=== PATIENT | female | born 1935 | race Caucasian/White ===

== ENCOUNTER 2016-11-27 18:43 | Inpatient (IN) | payer MEDICARE, BC ==
[~2016-11-27] VITALS: Ht 162.6 cm; Wt 62.2 kg
[~2016-11-27 18:43] MED LIST: ASPI1TAB69 PO; CLON1 PO; ENOX40P SQ; FERR325T PO; FURO20TA PO; HYDR-3516 PO; ISOS40TA PO; LABE100T2 PO; LACT10SO PO; NORC5TAB PO; PAXI40TA PO; POTA10SO12 PO; VITA100036 PO; VITA10004 PO; WALKER WHEELS/F1 MIS; ZIPR40 PO
[2016-11-27 18:57] VITALS: BP 144/67; PULSE 69; RESP 16; TEMP 98.1; O2SAT 95
--- NOTE | 2016-11-27 19:14 | PD ---
HPI Chief Complaint: Hip Injury Time Seen by Provider: 19:07 Travel History International Travel<30 days: No Contact w/Intl Traveler<30days: No Traveled to known affect area: No History of Present Illness HPI 81-year-old female came to the emergency room with history of fall in care home. Patient has history of dementia and in fact was in the hospital 10 days ago for a fall and right hip fracture. She just went to care home less than a week ago. As time as per capture manager she's been complaining of left hip pain. She was brought in on a board since she was unable to get up from the floor due to the pain of her left hip and lower back. Patient continues to be mostly noncommunicative due to her significant dementia. Patient is slightly hypoxic but otherwise vital signs are within normal limits. She is a DNR [facility] Past Medical History Narrative Medical List of her past medical history as reviewed from the nursing note. Arthritis: No Asthma: No Autoimmune Disease: No Blood Disorders: No Anxiety: Yes Depression: Yes Heart Rhythm Problems: No Cancer: Yes (SKIN) Cardiac Catheterization: No Cardiovascular Problems: Yes High Cholesterol: Yes Chemotherapy: No Chest Pain: Yes Congestive Heart Failure: No COPD: No Cerebrovascular Accident: No Coronary Artery Disease: Yes Dementia: Yes Diabetes: No Diminished Hearing: No Endocrine: No GERD: No Glaucoma: No Genitourinary: No Headaches: No Hepatitis: No Hiatal Hernia: No Hypertension: Yes Immune Disorder: No Kidney Stones: No Musculoskeletal: No Neurologic: Yes Psychiatric: No Reproductive: No Respiratory: No Migraines: No Myocardial Infarction: No Radiation Therapy: No Renal Failure: No Seizures: No Sickle Cell Disease: No Sleep Apnea: No Thyroid Disease: No Ulcer: No Menopausal: Yes : 4 Para: 4 Past Surgical History Abdominal Surgery: Yes (gallbladder) AICD: No Appendectomy: No Arteriovenous Shunt: No Cardiac Surgery: Yes (2stent placement 09/23/2008) Cholecystectomy: Yes Coronary Artery Bypass Graft: No Ear Surgery: No Endocrine Surgery: No Eye Surgery: No Genitourinary Surgery: No Gynecologic Surgery: No Insulin Pump: No Joint Replacement: No Pacemaker: No Thoracic Surgery: No Tonsillectomy: Yes Other Surgery: Yes (arthroscopy ) Social History Alcohol Use: Yes Tobacco Use: No Substance Use: No Allergies-Medications (Allergen,Severity, Reaction): Coded Allergies: Aricept (Verified Allergy, Severe, 11/27/16) unknown Clonidine (Verified Allergy, Severe, 11/27/16) unknown Comments List of her allergies reviewed from the nursing note. Reported Meds & Prescriptions Reported Meds & Active Scripts Active Klonopin (Clonazepam) 1 Mg Tab 1 Mg PO HS Walker with Front Wheels (Device) 1 Mis Mis 1 Ea .ROUTE DIRECTED Hydrocodone-Acetaminophen 5-325 mg Tab 1 Tab PO Q4H PRN Lovenox Inj (Enoxaparin Sodium) 40 Mg/0.4 Ml Syr 40 Mg SQ Q24H Reported [place] (Hydrocodone-Acetaminophen) 5-325 mg Tab 1 Tab PO Q4H PRN Lactulose Liq (Lactulose) 10 Gm/15 Ml Soln 30 Ml PO HS PRN Labetalol (Labetalol HCl) 100 Mg Tab 100 Mg PO TID Ferrous Sulfate 325 Mg Tab 325 Mg PO DAILY Geodon (Ziprasidone) 40 Mg Cap 40 Mg PO BID Vitamin D3 (Cholecalciferol) 1,000 Unit Cap 1,000 Units PO DAILY Vitamin B-12 Cr (Cyanocobalamin) 1,000 Mcg Tab 1,000 Mcg PO DAILY Potassium Chloride Liq (Potassium Chloride) 20 Meq/15 Ml Soln 20 Meq PO DAILY Paxil (Paroxetine HCl) 40 Mg Tab 37.5 Mg PO DAILY take two tabs Isosorbide Dinitrate SA (Isosorbide Dinitrate) 40 Mg Tab 60 Mg PO DAILY Furosemide 20 Mg Tab 20 Mg PO DAILY Aspirin 81 Mg Tabdr 81 Mg PO DAILY Narrative Medication List of her home medications reviewed from the nursing note. Review of Systems Except as stated in HPI: all other systems reviewed are Neg Physical Exam Narrative GENERAL: Awake, dementia, elderly and frail, noncommunicative, moderate distress SKIN: Warm and dry. Skin tear left elbow, significant ecchymosis right lower extremity HEAD: Atraumatic. Normocephalic. EYES: Pupils equal and round. No scleral icterus. No injection or drainage. ENT: No nasal bleeding or discharge. Mucous membranes pink and moist. NECK: Trachea midline. No JVD. CARDIOVASCULAR: Regular rate and rhythm. No murmur appreciated. RESPIRATORY: No accessory muscle use. Clear to auscultation. Breath sounds equal bilaterally. GASTROINTESTINAL: Abdomen soft, non-tender, nondistended. Hepatic and splenic margins not palpable. MUSCULOSKELETAL: No obvious deformities. No clubbing. No cyanosis. No edema. Patient is in the right lateral decubitus in position. Complains of bilateral lower extremity pain when attempting to move them. NEUROLOGICAL: Awake and significant dementia. Unable to determine her motor strength or sensory. Mostly nonverbal PSYCHIATRIC: Due to significant dementia poor insight and judgment Data Data Last Documented VS Vital Signs Date Time Temp Pulse Resp B/P Pulse Ox O2 Delivery O2 Flow Rate FiO2 11/27/16 19:20 78 15 91 Room Air 11/27/16 19:18 146/71 11/27/16 18:57 98.1 Orders Basic Metabolic Panel (Bmp) (11/27/16 19:07) Complete Blood Count With Diff (11/27/16 19:07) Prothrombin Time / Inr (Pt) (11/27/16 19:07) Act Partial Throm Time (Ptt) (11/27/16 19:07) Type And Screen (11/27/16 19:07) Ct Brain W/O Iv Contrast(Rout) (11/27/16 19:07) Ct Cerv Spine W/O Contrast (11/27/16 19:07) Ct Thor Spine W/O Contrast (11/27/16 19:07) Ct Lumb Spine W/O Contrast (11/27/16 19:07) Iv Access Insert/Monitor (11/27/16 19:07) Ecg Monitoring (11/27/16 19:07) Oximetry (11/27/16 19:07) Oxygen Administration (11/27/16 19:07) Sodium Chloride 0.9% Flush (Ns Flush) (11/27/16 19:15) Ct Pelvis W/O Iv Contrast (11/27/16 ) Morphine Inj (Morphine Inj) (11/27/16 19:30) Ondansetron Inj (Zofran Inj) (11/27/16 19:30) Admit Order (Ed Use Only) (11/27/16 19:55) Morphine Inj (Morphine Inj) (11/27/16 21:15) Urinary Catheter Insert/Apply (11/27/16 21:13) Consult Orthopedic (11/27/16 ) Admit To Inpatient (11/27/16 ) Vital Signs (Adult) Q4H (11/27/16 21:30) Activity Bed Rest (11/27/16 21:30) Diet Npo (11/28/16 Breakfast) Sodium Chlor 0.9% 1000 Ml Inj (Ns 1000 M (11/27/16 21:30) Sodium Chloride 0.9% Flush (Ns Flush) (11/27/16 21:30) Sodium Chloride 0.9% Flush (Ns Flush) (11/28/16 09:00) Ondansetron Inj (Zofran Inj) (11/27/16 21:30) Bisacodyl Supp (Dulcolax Supp) (11/27/16 21:30) Comprehensive Metabolic Panel (11/28/16 06:00) Complete Blood Count With Diff (11/28/16 06:00) Acetaminophen (Tylenol) (11/27/16 21:30) Acetamin-Hydrocod 325-5 Mg ([place] 5-325 (11/27/16 21:30) Morphine Inj (Morphine Inj) (11/27/16 21:30) Inpatient Certification (11/27/16 ) Lorazepam Inj (Ativan Inj) (11/27/16 21:30) Restraints Non-Violent RJ.Q3H (11/27/16 21:30) Clonazepam (Klonopin) (11/28/16 21:00) Ferrous Sulfate (Ferrous Sulfate) (11/28/16 09:00) Furosemide (Lasix) (11/28/16 09:00) Labetalol (Trandate) (11/28/16 09:00) Ziprasidone (Geodon) (11/27/16 21:30) Isosorbide Mononitrate (Imdur) (11/28/16 09:00) Paroxetine Sr (Paxil Cr) (11/28/16 09:00) Labs Laboratory Tests Test 11/27/16 19:15 White Blood Count 6.7 TH/MM3 Red Blood Count 3.16 MIL/MM3 Hemoglobin 9.2 GM/DL Hematocrit 27.5 % Mean Corpuscular Volume 87.1 FL Mean Corpuscular Hemoglobin 29.1 PG Mean Corpuscular Hemoglobin 33.3 % Concent Red Cell Distribution Width 15.6 % Platelet Count 275 TH/MM3 Mean Platelet Volume 8.7 FL Neutrophils (%) (Auto) 78.2 % Lymphocytes (%) (Auto) 10.8 % Monocytes (%) (Auto) 8.2 % Eosinophils (%) (Auto) 2.1 % Basophils (%) (Auto) 0.7 % Neutrophils # (Auto) 5.2 TH/MM3 Lymphocytes # (Auto) 0.7 TH/MM3 Monocytes # (Auto) 0.5 TH/MM3 Eosinophils # (Auto) 0.1 TH/MM3 Basophils # (Auto) 0.0 TH/MM3 CBC Comment DIFF FINAL Differential Comment Prothrombin Time 10.9 SEC Prothromb Time International 1.0 RATIO Ratio Activated Partial 26.1 SEC Thromboplast Time Sodium Level 136 MEQ/L Potassium Level 5.1 MEQ/L Chloride Level 101 MEQ/L Carbon Dioxide Level 27.2 MEQ/L Anion Gap 8 MEQ/L Blood Urea Nitrogen 29 MG/DL Creatinine 1.39 MG/DL Estimat Glomerular Filtration 36 ML/MIN Rate Random Glucose 92 MG/DL Calcium Level 8.3 MG/DL Blood Type A POSITIVE Antibody Screen NEGATIVE MDM Medical Decision Making Medical Screen Exam Complete: Yes Emergency Medical Condition: Yes Medical Record Reviewed: Yes Differential Diagnosis Left hip fracture, compression vertebral fracture Narrative Course 8:01 PM awaiting for the blood test results and the CAT scan to be done and resulted. Patient has been medicated for pain. 9:15 PM CAT scan shows left hip fracture which is a nondisplaced intertrochanteric. Awaiting for the hospitalist call back for admission. Patient has been medicated for pain again. I spoke with the family at the bedside and let them know of the diagnosis and the management. Procedures EKG Prior to Arrival: No Diagnosis Primary Impression: Hip fracture, intertrochanteric Qualified Code: S72.145A - Closed nondisplaced intertrochanteric fracture of left femur, initial encounter Additional Impressions: Dementia Qualified Code: F03.90 - Dementia without behavioral disturbance, unspecified dementia type Recurrent falls Admitting Information Admitting Physician Requests: Admit Scripts Rivaroxaban (Xarelto)10 Mg Tab10 Mg PO DAILY #14 TAB Ref 0 Prov:Pedro Teague 11/29/16 Hydrocodone-Acetaminophen ([place])7.5-325 mg Tab1 Tab PO Q4H PRN (PAIN) #60 TAB Ref 0 Prov:Pedro Teague 11/29/16 Emma Allen MD Nov 27, 2016 19:14
[2016-11-27] MEDS ORDERED: SODIUM CHLORIDE 0.9% FLUSH 5 ML FLUSH IVF PRN (19:15)
[2016-11-27 19:18] VITALS: BP 146/71; PULSE 72; RESP 15; O2SAT 91
[2016-11-27] MEDS ORDERED: ONDANSETRON HCL 4 MG/2 ML VIAL IV PUSH ONE (19:30)
[2016-11-27] MEDS ORDERED: MORPHINE SULFATE 4 MG/ML INJ IV PUSH ONE ×2 (19:30→21:15)
[2016-11-27 19:34] LABS: AUTOMATED NEUTROPHIL # 5.2 TH/MM3 (1.8-7.7); BASOPHIL % 0.7 % (0.0-2.0); EOSINOPHIL # 0.1 TH/MM3 (0-0.4); EOSINOPHIL % 2.1 % (0.0-4.0); HEMATOCRIT 27.5 % (35.0-46.0); HEMO FLAGS DIFF FINAL; LYMPH % 10.8 % (9.0-44.0); LYMPHOCYTE # 0.7 TH/MM3 (1.0-4.8); MEAN CELL VOLUME 87.1 FL (80.0-100.0); MEAN CORPUSCULAR HEMOGLOBIN 29.1 PG (27.0-34.0); MEAN CORPUSCULAR HGB CONC 33.3 % (32.0-36.0); MONO % 8.2 % (0.0-8.0); NEUT % 78.2 % (16.0-70.0); PLATELET COUNT 275 TH/MM3 (150-450); RED BLOOD COUNT 3.16 MIL/MM3 (4.00-5.30); RED CELL DISTRIBUTION WIDTH 15.6 % (11.6-17.2); WHITE BLOOD COUNT 6.7 TH/MM3 (4.0-11.0)
[2016-11-27 19:41] LABS: APTT (PATIENT) 26.1 SEC (24.3-30.1); PROTHROMBIN TIME - PATIENT 10.9 SEC (9.8-11.6)
[2016-11-27 19:54] LABS: BICARBONATE 27.2 MEQ/L (21.0-32.0); POTASSIUM 5.1 MEQ/L (3.5-5.1)
--- NOTE | 2016-11-27 20:45 | RADRPT ---
EXAM DATE/TIME: 11/27/2016 20:00 [facility] COMPARISON: CT BRAIN W/O CONTRAST, November 16, 2016, 19:12. INDICATIONS : Trauma; fall. RADIATION DOSE: 44.69 CTDIvol (mGy) MEDICAL HISTORY : Non-responsive. SURGICAL HISTORY : Non-responsive. ENCOUNTER: Initial ACUITY: 1 day PAIN SCALE: Non-responsive LOCATION: cranial TECHNIQUE: Multiple contiguous axial images were obtained of the head. Using automated exposure control and adj ustment of the mA and/or kV according to patient size, radiation dose was kept as low as reasonably a chievable to obtain optimal diagnostic quality images. FINDINGS: Study is motion degraded. CEREBRUM: The ventricles are normal for age. No evidence of midline shift, mass lesion, hemorrhage or acute in farction. No extra-axial fluid collections are seen. There is chronic low-attenuation in the periven tricular white matter and scattered old lacunar infarcts in both basal ganglia. POSTERIOR FOSSA: The cerebellum and brainstem are intact. The 4th ventricle is midline. The cerebellopontine angle i s unremarkable. EXTRACRANIAL: The visualized portion of the orbits is intact. SKULL: The calvaria is intact. No evidence of skull fracture. CONCLUSION: Motion degraded study. No bleed or other acute intracranial abnormality demonstrated. Chronic white m atter changes and old infarcts. Haris Rebolledo MD on November 27, 2016 at 20:43 Board Certified Radiologist. This report was verified electronically.
--- NOTE | 2016-11-27 20:48 | RADRPT ---
EXAM DATE/TIME: 11/27/2016 20:00 [facility] COMPARISON: No previous studies available for comparison. INDICATIONS : Trauma; fall. RADIATION DOSE: 18.11 CTDIvol (mGy) MEDICAL HISTORY : Non-responsive. SURGICAL HISTORY : Non-responsive. ENCOUNTER: Initial ACUITY: 1 day PAIN SCALE: Non-responsive LOCATION: neck TECHNIQUE: Volumetric scanning of the cervical spine was performed. Multiplanar reconstructions in the sagittal, coronal and oblique axial planes were performed. Using automated exposure control and adjustment o f the mA and/or kV according to patient size, radiation dose was kept as low as reasonably achievable to obtain optimal diagnostic quality images. FINDINGS: A few millimeters of degenerative appearing anterolisthesis at C4/C5 and degenerative retrolisthesis at C5/C6 noted. No fracture or acute appearing malalignment. Vertebral bodies have normal height. There is multilevel disc space narrowing with uncovertebral and facet osteoarthritis, moderate at C5/ C6 and C6/C7 and mild at the other levels. Juxtavertebral soft tissues are within normal limits. CONCLUSION: No fracture or acute appearing malalignment demonstrated of the cervical spine. Haris Rebolledo MD on November 27, 2016 at 20:45 Board Certified Radiologist. This report was verified electronically.
--- NOTE | 2016-11-27 21:03 | RADRPT ---
EXAM DATE/TIME: 11/27/2016 20:06 [facility] COMPARISON: HIP RIGHT (AP&LAT 2/3VWS) W AP PELVIS, November 16, 2016, 18:35. HIP RIGHT (AP&LAT 2/3VWS) WO AP PEL VIS, November 17, 2016, 15:37. INDICATIONS : Trauma; fall. ORAL CONTRAST: No oral contrast ingested. RADIATION DOSE: 11.20 CTDIvol (mGy) ; Combined studies MEDICAL HISTORY : Non-responsive. SURGICAL HISTORY : Non-responsive. ENCOUNTER: Initial ACUITY: 1 day PAIN SCALE: Non-responsive LOCATION: pelvis TECHNIQUE: Volumetric scanning of the pelvis was performed. Using automated exposure control and adjustment of the mA and/or kV according to patient size, radiation dose was kept as low as reasonably achievable t o obtain optimal diagnostic quality images. FINDINGS: There is an acute fracture involving the intertrochanteric region of the left hip. This is a new find ing from the prior exam. There is resulting varus angulation at the fracture site. The femoral head r emains in contact with the acetabulum. The prior intertrochanteric fracture on the right shows good a lignment with intramedullary ariana and femoral neck screw. The avulsed lesser trochanter is retracted p roximally. A scoliotic and degenerative spine is seen. No pelvic hematoma observed. There is hematoma seen involving the left posterior hip aerated old trauma the pubic rami on the left. CONCLUSION: 1. No comminuted intertrochanteric fracture on the left. 2. Prior right intertrochanteric hip fracture with orthopedic hardware. 3. 5 cm hematoma involving the posterior left hip. Quintin Galdamez Jr., MD on November 27, 2016 at 20:56 Board Certified Radiologist. This report was verified electronically.
--- NOTE | 2016-11-27 21:09 | RADRPT ---
EXAM DATE/TIME: 11/27/2016 20:06 [facility] COMPARISON: No previous studies available for comparison. INDICATIONS : Trauma; fall. RADIATION DOSE: 11.20 CTDIvol (mGy) ; Combined studies MEDICAL HISTORY : Non-responsive. SURGICAL HISTORY : Non-responsive. ENCOUNTER: Initial ACUITY: 1 day PAIN SCALE: Non-responsive LOCATION: lower back TECHNIQUE: Volumetric scanning of the lumbar spine was performed. Multiplanar reconstructions in the sagittal, coronal and oblique axial planes were performed. Using automated exposure control and adjustment of the mA and/or kV according to patient size, radiation dose was kept as low as reasonably achievable t o obtain optimal diagnostic quality images. FINDINGS: There is mild compression fracture involving the superior endplate of L2. There is quite a bit of ass ociated sclerosis and this appears subacute or older in age. There are no retropulsed fracture fragme nt or fracture-associated foraminal or spinal stenosis. Other lumbar vertebral bodies have normal height. Moderate to severe disc space narrowing with a broad disc osteophyte complex and facet osteoarthritis seen at L5/S1. There is associated moderate, bilateral foraminal stenosis at this level. Similar but milder findings are seen at L3/L4 and L4/L5. The sacrum is partly included on the study. There is patchy sclerosis of both sacroiliac and mild cor tical regularity on longer anterior margins. CONCLUSION: 1. No acute fracture or subluxation of the lumbar spine. 2. There is a subacute or older mild compression fracture of L2. No associated foraminal or spinal st enosis. 3. Mid and lower lumbar predominant degenerative changes as above. 4. Nonacute and substantially healed i fractures of the sacrum. I don't see an acute fracture of the visualized sacrum. Haris Rebolledo MD on November 27, 2016 at 21:02 Board Certified Radiologist. This report was verified electronically.
[2016-11-27] MEDS ORDERED: MORPHINE SULFATE 4 MG/ML INJ IV PRN (21:30)
[2016-11-27] MEDS ORDERED: SODIUM CHLORIDE 0.9% FLUSH 5 ML FLUSH FLUSH PRN (21:30)
[2016-11-27] MEDS ORDERED: ACETAMINOPHEN/HYDROcodone 325 MG/5 MG TAB PO PRN (21:30)
[2016-11-27] MEDS ORDERED: BISACODYL 10 MG SUPP PR PRN (21:30)
[2016-11-27] MEDS ORDERED: ONDANSETRON HCL 4 MG/2 ML VIAL IVP PRN (21:30)
[2016-11-27] MEDS ORDERED: ACETAMINOPHEN 325 MG TAB PO PRN (21:30)
[2016-11-27] MEDS ORDERED: LORazepam 2 MG/ML VIAL IV PUSH PRN (21:30)
--- NOTE | 2016-11-27 21:44 | HHI.HP ---
[facility] Unknown Admission Diagnosis Diagnoses: (1) Hip fracture, intertrochanteric Diagnosis: Principal (2) Recurrent falls Diagnosis: Principal (3) Dementia Diagnosis: Principal Travel History International Travel<30 Days: No Contact w/Intl Traveler <30 Da: No Traveled to Known Affected Are: No History of Present Illness This is an 81-year-old female with a PMH of Dementia, Anxiety, Depression and Recurrent Falls who was transferred to the ER from SNF after another fall. Pt unable to provide much history except for complains of left hip pain. Recent admit 11/16-11/21/16 for same, found to have Right Intertrochanteric Hip Fx /sp ORIF 11/17/16. On arrival, BP 146/71, HR 71, O2 sat 91% on RA, Afebrile. CBC at baseline. Chemistry at baseline. Creatinine 1.39, previously 1.[address] Head, CT C-Spine w/ no acute finding. CT L-Spine w/ subacute L2 compression fracture, no acute findings. CT T-Spine w/ acute compression fracture T11. CT Pelvis w/ acute fracture of left intertrochanteric hip and posterior hip hematoma. Review of Systems Other ROS: Unable to obtain. Past Family Social History Past Medical History PMH: Dementia, Anxiety, Depression and Recurrent Falls Past Surgical History PAST SURGICAL HISTORY: Cholecystectomy, Cardiac Stent, Tonsillectomy, Right Hip ORIF Allergies: Coded Allergies: Aricept (Verified Allergy, Severe, 11/27/16) unknown Clonidine (Verified Allergy, Severe, 11/27/16) unknown Family History PAST FAMILY HISTORY: Reviewed. No h/o DM or CAD Social History PAST SOCIAL HISTORY: Occasional alcohol. Negative for tobacco or drugs. Physical Exam Vital Signs Vital Signs Date Time Temp Pulse Resp B/P Pulse Ox O2 Delivery O2 Flow Rate FiO2 11/27/16 19:20 78 15 91 Room Air 11/27/16 19:18 72 15 146/71 91 Room Air 11/27/16 19:02 70 18 95 Room Air 11/27/16 18:57 98.1 69 16 144/67 95 Physical Exam PE: GENERAL: Elderly female in no acute distress. Significant dementia. HEENT: PERRLA, EOMI. No scleral icterus or conjunctival pallor. No lid lag or facial droop. CARDIOVASCULAR: Regular rate and rhythm. No obvious murmurs to auscultation. No chest tenderness to palpation. RESPIRATORY: No obvious rhonchi or wheezing. Clear to auscultation. Breath sounds equal bilaterally. GASTROINTESTINAL: Abdomen soft, non-tender, nondistended. BS normal. MUSCULOSKELETAL: Extremities without clubbing, cyanosis, or edema. No obvious deformities. Decreased ROM of left hip due to injury NEUROLOGICAL: Awake, alert, dementia. No focal neurologic deficits. Moving both upper and lower extremities spontaneously. Laboratory Laboratory Tests Test 11/27/16 19:15 White Blood Count 6.7 Red Blood Count 3.16 Hemoglobin 9.2 Hematocrit 27.5 Mean Corpuscular Volume 87.1 Mean Corpuscular Hemoglobin 29.1 Mean Corpuscular Hemoglobin 33.3 Concent Red Cell Distribution Width 15.6 Platelet Count 275 Mean Platelet Volume 8.7 Neutrophils (%) (Auto) 78.2 Lymphocytes (%) (Auto) 10.8 Monocytes (%) (Auto) 8.2 Eosinophils (%) (Auto) 2.1 Basophils (%) (Auto) 0.7 Neutrophils # (Auto) 5.2 Lymphocytes # (Auto) 0.7 Monocytes # (Auto) 0.5 Eosinophils # (Auto) 0.1 Basophils # (Auto) 0.0 CBC Comment DIFF FINAL Differential Comment Prothrombin Time 10.9 Prothromb Time International 1.0 Ratio Activated Partial 26.1 Thromboplast Time Sodium Level 136 Potassium Level 5.1 Chloride Level 101 Carbon Dioxide Level 27.2 Anion Gap 8 Blood Urea Nitrogen 29 Creatinine 1.39 Estimat Glomerular Filtration 36 Rate Random Glucose 92 Calcium Level 8.3 Blood Type A POSITIVE Antibody Screen NEGATIVE Result Diagram: 11/27/16191411/27/161914 Assessment and Plan Problem List: (1) Recurrent falls ICD Code: R29.6 Status: Acute (2) Hip fracture, intertrochanteric ICD Code: S72.143A Status: Acute (3) Thoracic compression fracture ICD Code: S22.000A Status: Acute (4) Dementia ICD Code: F03.90 Status: Chronic Assessment and Plan A/P: 1. Recurrent Falls: sent to ER from SNF secondary to fall at facility, details unclear. CT Head, CT C-Spine w/ no acute fracture. CT L-Spine w/ subacute L1 fx, CT T-Spine w/ acute T-11 compression fracture, images reviewed. 2. Left Hip Fx: secondary to fall, CT Pelvis w/ left intertrochanteric hip fracture. Ortho consult not placed, will consult Ortho for eval, NPO, IVF, analgesics/antiemetics. 3. Thoracic Compression Fx: Acute. CT T-Spine w/ acute compression fracture T -11. TLSO. PT for eval/tx. 4. Dementia: Severe Dementia. Resume home Geodon, Courtney. Ativan prn. 5. DVT Prophylaxis: SCD/Teds 6. Social work for d/c planning as needed. 7. Case discussed w/ ER physician at length. Physician Certification 2 Midnight Certification Type: Admission for Inpatient Services Order for Inpatient Services The services are ordered in accordance with Medicare regulations or non- Medicare payer requirements, as applicable. In the case of services not specified as inpatient-only, they are appropriately provided as inpatient services in accordance with the 2-midnight benchmark. Estimated LOS (days): 2 days is the estimated time the patient will need to remain in the hospital, assuming treatment plan goals are met and no additional complications. Post-Hospital Plan: Not yet determined Problem Qualifiers (1) Hip fracture, intertrochanteric: Qualified Code: S72.145A - Closed nondisplaced intertrochanteric fracture of left femur, initial encounter (2) Dementia: Qualified Code: F03.90 - Dementia without behavioral disturbance, unspecified dementia type Erica Kwok MD Nov 27, 2016 21:44
--- NOTE | 2016-11-27 21:59 | RADRPT ---
EXAM DATE/TIME: 11/27/2016 20:06 [facility] COMPARISON: No previous studies available for comparison. INDICATIONS : Trauma; fall. RADIATION DOSE: 11.20 CTDIvol (mGy) ; Combined studies MEDICAL HISTORY : Non-responsive. SURGICAL HISTORY : Non-responsive. ENCOUNTER: Initial ACUITY: 1 day PAIN SCALE: Non-responsive LOCATION: upper back TECHNIQUE: Volumetric scanning of the thoracic spine was performed. Multiplanar reconstructions in the sagittal , coronal and oblique axial planes were performed. Using automated exposure control and adjustment o f the mA and/or kV according to patient size, radiation dose was kept as low as reasonably achievable to obtain optimal diagnostic quality images. FINDINGS: Diffuse osteopenia. Scoliotic curvature is pronounced involving the lumbar and thoracic spine. There is an acute compression fracture involving T11. There is a 50% loss of height with 2 mm of retropulsi on of the posterior cortical margin. 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 No retropulsion at that level. CONCLUSION: 1. Acute compression fracture of T11 with 2 mm of retropulsion and 50% loss of height. 2. Old T9 compression fracture. 3. Scoliotic curvature and osteopenia. 4. Large hiatal hernia. Quintin Galdamez Jr., MD on November 27, 2016 at 21:49 Board Certified Radiologist. This report was verified electronically.
[2016-11-27 22:09] VITALS: BP 165/79; PULSE 87; PULSE 96; RESP 15; O2SAT 3; O2SAT 93; O2SAT 98
[2016-11-27 22:18] VITALS: RESP 15; O2SAT 93
[2016-11-27] MEDS: ZIPRASIDONE HCL 40 MG CAP PO SCH (22:23)
[2016-11-27 22:40] VITALS: BP 135/63; PULSE 95; RESP 17; O2SAT 99
[2016-11-27] MEDS: SODIUM CHLOR 0.9% 1000 ML INJ 1,000 ML IV SCH (22:58)
[2016-11-28] VITALS (7 sets, daily range): BP systolic 142–181; BP diastolic 66–86; PULSE 75–92; RESP 16–18; TEMP 96–98.2; O2SAT 93–98
[2016-11-28] MEDS ORDERED: INSULIN HUMAN REGULAR 1,000 UNITS/10 ML VIAL SQ PRN (03:15)
[2016-11-28] MEDS: LACTATED RINGER'S 1000 ML IV SCH (03:15)
[2016-11-28] MEDS: SODIUM CHLORID 0.9% 500 ML IV SCH ×2 (03:15→19:55)
[2016-11-28] MEDS: SODIUM CHLOR 0.9% 1000 ML INJ 1,000 ML IV SCH ×2 (06:41→17:30)
[2016-11-28 06:48] LABS: AUTOMATED NEUTROPHIL # 5.8 TH/MM3 (1.8-7.7); BASOPHIL % 0.6 % (0.0-2.0); EOSINOPHIL # 0.1 TH/MM3 (0-0.4); EOSINOPHIL % 0.8 % (0.0-4.0); HEMATOCRIT 26.4 % (35.0-46.0); HEMO FLAGS DIFF FINAL; LYMPH % 9.6 % (9.0-44.0); LYMPHOCYTE # 0.7 TH/MM3 (1.0-4.8); MEAN CORPUSCULAR HEMOGLOBIN 29.1 PG (27.0-34.0); MEAN CORPUSCULAR HGB CONC 33.4 % (32.0-36.0); MONO % 9.2 % (0.0-8.0); NEUT % 79.8 % (16.0-70.0); PLATELET COUNT 259 TH/MM3 (150-450); RED BLOOD COUNT 3.04 MIL/MM3 (4.00-5.30); RED CELL DISTRIBUTION WIDTH 15.4 % (11.6-17.2); WHITE BLOOD COUNT 7.3 TH/MM3 (4.0-11.0)
[2016-11-28 07:06] LABS: ALKALINE PHOSPHATASE 100 U/L (45-117); ALT (GPT) 23 U/L (10-53); ANION GAP 5 MEQ/L (5-15); AST (GOT) 31 U/L (15-37); BICARBONATE 27.7 MEQ/L (21.0-32.0); BLOOD UREA NITROGEN 27 MG/DL (7-18); CHLORIDE 105 MEQ/L (98-107); GLOMERULAR FILTRATION RATE 42 ML/MIN (>89); POTASSIUM 4.5 MEQ/L (3.5-5.1); SODIUM (NA) 138 MEQ/L (136-145); TOTAL BILIRUBIN ADULT 0.9 MG/DL (0.2-1.0)
[2016-11-28] MEDS: LABETALOL HCL 100 MG TAB PO SCH ×3 (09:00→16:55)
[2016-11-28] MEDS: PARoxetine HCL 37.5 MG CONTROLLED RELEASE TAB PO SCH (09:00)
[2016-11-28] MEDS ORDERED: SODIUM CHLORIDE 0.9% FLUSH 5 ML FLUSH FLUSH SCH (09:00)
[2016-11-28] MEDS: FERROUS SULFATE 325 MG (65 MG ELEMENTAL IRON) TAB PO SCH (09:00)
[2016-11-28] MEDS: ZIPRASIDONE HCL 40 MG CAP PO SCH (09:00)
[2016-11-28] MEDS: FUROSEMIDE 20 MG TAB PO SCH (09:00)
[2016-11-28] MEDS: ISOSORBIDE MONONITRATE 60 MG TAB PO SCH (09:00)
--- NOTE | 2016-11-28 09:53 | PD.ORT.PN ---
Subjective Subjective Remarks Fall yesterday in bedroom when tripping over [facility] tube [facility]. Previous right hip fracture with surgery performed by Dr. Waters recently. Now has pain to left hip. Objective Vitals Vital Signs Date Time Temp Pulse Resp B/P Pulse Ox O2 Delivery O2 Flow Rate FiO2 11/28/16 04:00 98.2 79 18 142/67 96 11/28/16 00:00 97.8 85 17 151/71 98 11/27/16 22:40 95 17 135/63 99 Room Air 11/27/16 22:18 15 93 Room Air 11/27/16 22:09 96 15 165/79 98 Room Air 11/27/16 19:20 78 15 91 Room Air 11/27/16 19:18 72 15 146/71 91 Room Air 11/27/16 19:02 70 18 95 Room Air 11/27/16 18:57 98.1 69 16 144/67 95 I/O 11/27/16 11/27/16 11/27/16 11/28/16 11/28/16 11/28/16 06:59 14:59 22:59 06:59 14:59 22:59 Intake Total 742 ml Output Total 425 ml Balance 317 ml Intake Oral 0 ml IV Total 742 ml Output Urine Total 425 ml # Bowel Movements 0 Result Diagram: 11/28/16 0611 11/28/16 0611 Other Results Laboratory Tests Test 11/27/16 19:15 Prothrombin Time 10.9 SEC (9.8-11.6) Prothromb Time International 1.0 RATIO Ratio Imaging Last 24 hours Impressions [address] Spine CT 11/27/161906 Signed Impressions: Service Date/Time: Sunday, November 27, 2016 20:06 - CONCLUSION: 1. Acute compression fracture of T11 with 2 mm of retropulsion and 50%% loss of height. 2. Old T9 compression fracture. 3. Scoliotic curvature and osteopenia. 4. Large hiatal hernia. Quintin Galdamez Jr., MD Lumbar Spine CT 11/27/161906 Signed Impressions: Service Date/Time: Sunday, November 27, 2016 20:06 - CONCLUSION: 1. No acute fracture or subluxation of the lumbar spine. 2. There is a subacute or older mild compression fracture of L2. No associated foraminal or spinal stenosis. 3. Mid and lower lumbar predominant degenerative changes as above. 4. Nonacute and substantially healed i fractures of the sacrum. I don't see an acute fracture of the visualized sacrum. Haris Rebolledo MD Head CT 11/27/161906 Signed Impressions: Service Date/Time: Sunday, November 27, 2016 20:00 - CONCLUSION: Motion degraded study. No bleed or other acute intracranial abnormality demonstrated. 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 Haris Rebolledo MD Cervical Spine CT 11/27/161906 Signed Impressions: Service Date/Time: Sunday, November 27, 2016 20:00 - CONCLUSION: No fracture or acute appearing malalignment demonstrated of the cervical spine. Haris Rebolledo MD Objective Remarks Bilateral upper extremities: Full range of motion neurovascularly intact. Right lower extremity: clean surgical incisions with Steri-Strips. Minimal pain with hip range of motion. Full range of motion in ankle. Distally intact sensation capillary refills Left lower extremity: Pain to palpation of hip. No pain with knee or ankle range of motion. Distally neurovascularly intact. Strong dorsiflexion and plantar flexion of the foot Assessment & Plan Assessment and Plan Left intertrochanteric femur fracture Surgery this morning with Dr. Herrera for intramedullary nail Sign consents Nothing by mouth BRAYDON MORSE PA-C Nov 28, 2016 09:53
--- NOTE | 2016-11-28 10:28 | MB ---
cc: SARAH MAYER MD, TODD DATE OF CONSULTATION: 11/28/2016 REASON FOR CONSULTATION Left hip intertrochanteric fracture. CONSULTING PHYSICIAN Dr. Mayer HISTORY OF PRESENT ILLNESS Ms. Nielsen is an 81-year-old female who has a history of dementia, anxiety, depression and recurrent falls. [facility] a [facility]. She fell in October 2016 and had a right hip intertrochanteric fracture. She had surgery on 11/17/2016. She currently complains of left hip pain. She presented to the emergency room where imaging revealed a left hip intertrochanteric fracture. She is currently awake but confused. Pain is worse with movement. No other history is available. PAST MEDICAL HISTORY ILLNESSES 1. Dementia. 2. Anxiety. 3. Depression. SURGERIES 1. Cholecystectomy. 2. Cardiac stent placement. 3. Tonsillectomy. 4. Right hip ORIF. ALLERGIES 1. ARICEPT. 2. CLONIDINE. FAMILY HISTORY Unobtainable. SOCIAL HISTORY Unobtainable. The patient does live in a [facility] facility. REVIEW OF SYSTEMS Unobtainable because of dementia. PHYSICAL EXAMINATION GENERAL: The patient is a well-developed, well-nourished 81-year-old female who is awake but confused. She is unable to answer questions appropriately. VITAL SIGNS: Temperature 98.2, pulse 79, respirations 18, blood pressure 142/67. O2 sat is 96% on room air. HEAD: The patient is normocephalic. Pupils are equal. NECK: Soft, nontender. Trachea is midline. ABDOMEN: Soft, nontender, nondistended. EXTREMITIES: Examination of the bilateral upper extremities reveals no pain with shoulder, elbow or wrist motion. She has intact sensation in all fingers. She has good capillary refill in all fingers. Skin is intact. Radial pulses are palpable. Examination of the right leg reveals no obvious pain or deformity with hip, knee or ankle motion. She has surgical incisions on her lateral hip. These are clean and dry. Thigh and calf compartments are soft. She has palpable dorsalis pedis pulse. Skin is intact except for surgical incisions. Examination of the left leg reveals pain with any hip movement. She has no obvious tenderness around her knee, tibia or ankle. Skin is intact. Sensation is grossly intact. Dorsalis pedis pulse is palpable. CT SCAN A CT scan was reviewed. CT scan of pelvis reveals a left hip intertrochanteric fracture. IMPRESSION 1. Left hip intertrochanteric fracture. 2. Osteoporosis 3. Frequent falls. 4. Dementia. PLAN The treatment options at this point would include reduction and intramedullary nail fixation of the left hip. The risks of surgery include bleeding, infection, injuries to arteries, nerves and blood vessels, nonunion, malunion, painful hardware, as well as medical complications including blood clot, stroke, heart attack and . I will attempt to contact the power of road machine runner or family for consents. All questions were answered. A mid-level provider in my office, nurse practitioner or PA, may see this patient on a follow-up basis and continue to implement the objective of this plan including: Starting or adjusting medications, injections of muscle, tendon, bursa or joints, cast application, orthotic or brace application, physical therapy, further radiographic studies including x-ray, MRI, CT, ultrasounds or bone scan, vascular studies, neurologic studies, or other specialist consultations, and proceeding with surgical management as appropriate. MD GIUSEPPE Fields/BETH /9:01 AM /10:15 AM
[2016-11-28] MEDS ORDERED: PHENYLEPH/NS 1000 MCG/10 ML SYR IV ONE (12:00)
[2016-11-28] MEDS ORDERED: ePHEDrine/NS 50 MG/5 ML SYR IV ONE (12:00)
[2016-11-28] MEDS ORDERED: ONDANSETRON HCL 4 MG/2 ML VIAL IV PUSH ONE (12:00)
[2016-11-28] MEDS ORDERED: PROPOFOL 200 MG/20 ML AMP IV ONE (12:00)
[2016-11-28] MEDS ORDERED: VANCOMYCIN HCL 1000 MG VIAL ONE (14:37)
[2016-11-28] MEDS ORDERED: BUPIVACAINE/EPINEPHRINE 0.25% PF 30 ML VIAL ONE (14:51)
--- NOTE | 2016-11-28 14:58 | PD.OP ---
cc: Simone Guzman MD Operative Report Date of Surgery: Nov 28, 2016 Preoperative Diagnosis: Left hip intertrochanteric fracture Postoperative Diagnosis: Procedure: Left hip reduction and intramedullary nail fixation Anesthesia: Gen. Surgeon: Simone Guzman Milk Treater(s): ROSEANNE Desir PA-C The surgical procedure was assisted by my physician assistant elementary teacher. My P.A. presence was necessary throughout this case for the manipulation and positioning of the surgical extremity. My P.A. was assisting me throughout the duration of this procedure. The skill set of a physician assistant elementary teacher was medically necessary to complete this procedure. During the surgical case the surgical assistant certified was working at the back table and the physician assistant elementary teacher was directly assisting me. Operation and Findings: Implants used: [10]mm Synthes TFNA intermediate 130 troch nail Plan of activity: Weight-bear as tolerated Patient was seen and evaluated preoperatively. The patient has significant hip pain from intertrochanteric hip fracture. The risk and benefits of surgery were discussed in depth with the patient to include bleeding infection nonunion malunion and need for hip replacement painful hardware as well as medical competitions including but not stroke heart attack and . Informed consent was obtained. Operative site was marked. Patient was brought to the operating room and placed on fracture table. IV sedation was administered by anesthesiologist. Timeout procedure was performed. Hip and leg were prepped with alcohol followed by DuraPrep and draped in the usual sterile fashion. IV antibiotics were given prior to incision. Procedure began with reduction of fracture. Traction was applied. The leg was manipulated to achieve reduction. Excellent reduction was achieved. Fluoroscopy was used to confirm reduction. A three inch incision was made proximal to the trochanter. Subcutaneous tissue was dissected bluntly. Guidepin was placed at the tip of the trochanter and advanced into the femoral canal. Fluoroscopy confirmed appropriate guidepin placement. A opening reamer was placed over the guidepin. The Synthes TFNA nail was attached to the insertion handle. Nail was now placed through the tip of the trochanter into the femoral canal. Fluoroscopy confirmed appropriate nail placement. A second incision was made over the lateral thigh. Cannulas were placed through the insertion handle down to the femur. Guidepin was now placed through the femoral nail into the center of the femoral head. Fluoroscopy confirmed appropriate guidepin placement. Screw length was measured. Cannulated drill was placed over the guidepin. Appropriate length lag screw was now placed. Traction was released and compression was applied. The set screw was now tightened in dynamic mode. Using the insertion handle as a guide a distal interlocking screw was drilled and placed. Final fluoroscopy revealed well aligned fracture with well-placed hardware. Incision was closed with 3-0 Vicryl and krysta. Sterile dressings were applied. Patient was awakened and transferred to recovery room. Simone Guzman MD Nov 28, 2016 14:58
[2016-11-28] MEDS ORDERED: diphenhydrAMINE HCL 25 MG CAP PO PRN (15:00)
[2016-11-28] MEDS ORDERED: MORPHINE SULFATE 4 MG/ML INJ IV PUSH PRN (15:00)
[2016-11-28] MEDS ORDERED: ACETAMINOPHEN/HYDROcodone 325 MG/5 MG TAB PO PRN (15:00)
[2016-11-28] MEDS ORDERED: ERGOCALCIFEROL (VIT D2) 50,000 UNIT CAP PO ONE (15:00)
[2016-11-28] MEDS ORDERED: SODIUM CHLORIDE 0.9% FLUSH 5 ML FLUSH IVF PRN (15:00)
[2016-11-28] MEDS ORDERED: DO NOT ADM ANY ANTICOAGULANT DRUGS XX PRN (15:16)
[2016-11-28] MEDS: CALCIUM/VITAMIN D 250 MG/125 U TAB PO SCH (16:55)
--- NOTE | 2016-11-28 17:55 | RADRPT ---
EXAM DATE/TIME: 11/28/2016 14:50 [facility] COMPARISON: CT PELVIS W/O CONTRAST, November 27, 2016, 20:06. INDICATIONS : Left hip fracture repair with trochanteric nail. OR. MEDICAL HISTORY : None. SURGICAL HISTORY : None. ENCOUNTER: Initial ACUITY: 1 day PAIN SCORE: Non-responsive. LOCATION: Left hip FINDINGS: The comminuted intertrochanteric fracture of the left femur has undergone open reduction internal fix ation. Alignment is near-anatomic. CONCLUSION: Nail and ariana fixation of the left intertrochanteric fracture. Anatomic alignment. No acute complicati on demonstrated. Haris Rebolledo MD on November 28, 2016 at 17:53 Board Certified Radiologist. This report was verified electronically.
[2016-11-28] MEDS ORDERED: ZIPRASIDONE HCL 40 MG CAP PO ONE (19:15)
--- NOTE | 2016-11-28 19:29 | HHI.PR ---
Subjective Remarks Patient seen this evening after hip surgery. She is reporting extreme pain in left hip. No chest pain or shortness of breath. She is disoriented. Family at bedside. They deny any previous issues with narcotic pain medication in the past. Discussed with nursing. Will give scheduled 10 mg Pierce now. Replace IV. IV morphine when necessary. Family states scheduled Suze works very well for agitation in the past. Objective Vital Signs Date Time Temp Pulse Resp B/P Pulse Ox O2 Delivery O2 Flow Rate FiO2 11/28/16 17:33 97 Nasal Cannula 2.00 11/28/16 16:00 78 12 135/69 97 Nasal Cannula 2 11/28/16 16:00 96.3 79 16 181/79 95 11/28/16 15:45 77 13 140/60 95 Nasal Cannula 2 11/28/16 15:30 73 14 130/60 99 Nasal Cannula 2 11/28/16 15:20 97.7 76 15 138/62 99 Simple Mask 6 11/28/16 12:00 97.3 75 16 145/66 97 11/28/16 08:00 96.0 85 16 160/72 94 11/28/16 04:00 98.2 79 18 142/67 96 11/28/16 00:00 97.8 85 17 151/71 98 11/27/16 22:40 95 17 135/63 99 Room Air 11/27/16 22:18 15 93 Room Air 11/27/16 22:09 96 15 165/79 98 Room Air I/O 11/27/16 11/27/16 11/27/16 11/28/16 11/28/16 11/28/16 07:00 15:00 23:00 07:00 15:00 23:00 Intake Total 742 ml 650 ml Output Total 425 ml 500 ml 225 ml Balance 317 ml -500 ml 425 ml Intake Oral 0 ml IV Total 742 ml 50 ml Other 600 ml Output Urine Total 425 ml 500 ml Estimated Blood Loss 25 ml Other 200 ml # Bowel Movements 0 0 Result Diagram: 11/28/16 0611 11/28/16 0611 Objective Remarks GENERAL: Patient lying in bed. Restrained, struggling.. Awake. Appears in pain. Disoriented. SKIN: Warm and dry. HEAD: Normocephalic. EYES: No scleral icterus. No injection or drainage. NECK: Supple, trachea midline. No JVD. CARDIOVASCULAR: Regular rate and rhythm without murmurs, gallops, or rubs. RESPIRATORY: Breath sounds equal bilaterally. No accessory muscle use. GASTROINTESTINAL: Abdomen soft, non-tender, nondistended. MUSCULOSKELETAL: No cyanosis, or edema. Peripheral perfusion appears intact. Left postoperative hip not examined. Patient moving bilateral lower and upper extremities. BACK: Nontender without obvious deformity. No CVA tenderness. A/P Assessment and Plan //Postop left hip ORIF 11/28/16 secondary to fracture -Postoperative management as per surgical service -Pain management as per surgical service. Await return of bowel function. = 1/2. Discussed with nursing. We'll give by mouth medications. Awaiting replacement of IV. //Recurrent Falls: sent to ER from SNF secondary to fall at facility, details still unclear. CT Head, CT C-Spine w/ no acute fracture. -Patient with recent right hip fracture month ago. -Appreciate physical therapy assistance. //CT T-Spine w/ acute T-11 compression fracture. //CT L-Spine w/ subacute L1 fx -Patient not complaining of any pain. Sensation and lower extremity strength appears to be intact. -Pain management -Physical therapy consult placed. // Dementia: Severe Dementia. //Agitation postop 11/28. -/2. Continue home Geodon at 9 AM and with dinner. -Continue Klonopin. Ativan prn. -Continued reorientation. Restraints as needed. //DVT Prophylaxis: SCD/Teds. Anticoagulation as per surgical service. //CODE STATUS. Discussed with family. DO NOT RESUSCITATE. Discharge Planning Expect inpatient rehabilitation in 2-3 days. Darrell Parisi MD Nov 28, 2016 19:29
[2016-11-28] MEDS: SODIUM CHLORIDE 0.9% FLUSH 5 ML FLUSH IVF SCH (21:00)
[2016-11-28] MEDS: clonazePAM 1 MG TAB PO SCH (22:03)
[2016-11-29] VITALS (10 sets, daily range): BP systolic 88–143; BP diastolic 50–70; PULSE 57–93; RESP 15–20; TEMP 96.9–100.5; O2SAT 92–99
[2016-11-29] MEDS: LACTATED RINGER'S 1000 ML IV SCH (00:29)
[2016-11-29] MEDS: SODIUM CHLOR 0.9% 1000 ML INJ 1,000 ML IV SCH ×2 (01:53→13:30)
--- NOTE | 2016-11-29 06:51 | PD.ORT.PN ---
Subjective Subjective Remarks POD 1 s/p left IT IMN doing well. pain controlled. in restraints Objective Vitals Vital Signs Date Time Temp Pulse Resp B/P Pulse Ox O2 Delivery O2 Flow Rate FiO2 11/29/16 04:00 98.5 75 16 121/58 97 11/29/16 00:00 97.4 93 16 143/67 96 11/28/16 20:00 97.3 92 17 178/86 93 11/28/16 17:33 97 Nasal Cannula 2.00 11/28/16 16:00 78 12 135/69 97 Nasal Cannula 2 11/28/16 16:00 96.3 79 16 181/79 95 11/28/16 15:45 77 13 140/60 95 Nasal Cannula 2 11/28/16 15:30 73 14 130/60 99 Nasal Cannula 2 11/28/16 15:20 97.7 76 15 138/62 99 Simple Mask 6 11/28/16 12:00 97.3 75 16 145/66 97 11/28/16 08:00 96.0 85 16 160/72 94 I/O 11/28/16 11/28/16 11/28/16 11/29/16 11/29/16 11/29/16 07:00 15:00 23:00 07:00 15:00 23:00 Intake Total 742 ml 890 ml 953 ml Output Total 425 ml 500 ml 625 ml 350 ml Balance 317 ml -500 ml 265 ml 603 ml Intake Oral 0 ml 240 ml 240 ml IV Total 742 ml 50 ml 713 ml Other 600 ml Output Urine Total 425 ml 500 ml 400 ml 350 ml Estimated Blood Loss 25 ml Other 200 ml # Bowel Movements 0 0 0 0 Result Diagram: 11/28/16 0611 11/28/16 0611 Imaging Last 24 hours Impressions Thoracic Spine CT 11/27/161906 Signed Impressions: Service Date/Time: Sunday, November 27, 2016 20:06 - CONCLUSION: 1. Acute compression fracture of T11 with 2 mm of retropulsion and 50%% loss of height. 2. Old T9 compression fracture. 3. Scoliotic curvature and osteopenia. 4. Large hiatal hernia. Quintin Galdamez Jr., MD Lumbar Spine CT 11/27/161906 Signed Impressions: Service Date/Time: Sunday, November 27, 2016 20:06 - CONCLUSION: 1. No acute fracture or subluxation of the lumbar spine. 2. There is a subacute or older mild compression fracture of L2. No associated foraminal or spinal stenosis. 3. Mid and lower lumbar predominant degenerative changes as above. 4. Nonacute and substantially healed i fractures of the sacrum. I don't see an acute fracture of the visualized sacrum. Haris Rebolledo MD Head CT 11/27/161906 Signed Impressions: Service Date/Time: Sunday, November 27, 2016 20:00 - CONCLUSION: Motion degraded study. No bleed or other acute intracranial abnormality demonstrated. 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 Haris Rebolledo MD Cervical Spine CT 11/27/161906 Signed Impressions: Service Date/Time: Sunday, November 27, 2016 20:00 - CONCLUSION: No fracture or acute appearing malalignment demonstrated of the cervical spine. Haris Rebolledo MD Objective Remarks LLE: dressing clean and dry. intact. NVI Assessment & Plan Assessment and Plan Left intertrochanteric femur fracture s/p IMN - POD 1 -WBAT -daily dressing changes POD 2 -CM for rehab placement -f/u with [facility] or [facility] in 2 weeks Pedro Teague Nov 29, 2016 06:51
[2016-11-29] MEDS ORDERED: XARE10TA PO (06:54)
[2016-11-29] MEDS ORDERED: HYDR-3288 PO (06:54)
[2016-11-29] MEDS ORDERED: WALKER WHEELS/F1 MIS (06:54)
[2016-11-29] MEDS: CALCIUM/VITAMIN D 250 MG/125 U TAB PO SCH ×3 (09:13→18:49)
[2016-11-29] MEDS: SODIUM CHLORIDE 0.9% FLUSH 5 ML FLUSH IVF SCH ×2 (09:13→21:00)
[2016-11-29] MEDS: FUROSEMIDE 20 MG TAB PO SCH (09:13)
[2016-11-29] MEDS: ZIPRASIDONE HCL 40 MG CAP PO SCH ×2 (09:13→18:49)
[2016-11-29] MEDS: ISOSORBIDE MONONITRATE 60 MG TAB PO SCH (09:13)
[2016-11-29] MEDS: FERROUS SULFATE 325 MG (65 MG ELEMENTAL IRON) TAB PO SCH (09:13)
[2016-11-29] MEDS: CHOLECALCIFEROL (VIT D3) 5000 UNIT CAP PO SCH (09:13)
[2016-11-29] MEDS: PARoxetine HCL 37.5 MG CONTROLLED RELEASE TAB PO SCH (09:13)
[2016-11-29] MEDS: LABETALOL HCL 100 MG TAB PO SCH ×3 (09:13→18:49)
[2016-11-29 12:26] LABS: AUTOMATED NEUTROPHIL # 5.4 TH/MM3 (1.8-7.7); BASOPHIL % 0.4 % (0.0-2.0); EOSINOPHIL % 0.3 % (0.0-4.0); LYMPH % 7.7 % (9.0-44.0); LYMPHOCYTE # 0.5 TH/MM3 (1.0-4.8); MEAN CELL VOLUME 88.8 FL (80.0-100.0); MEAN CORPUSCULAR HEMOGLOBIN 29.2 PG (27.0-34.0); MEAN CORPUSCULAR HGB CONC 32.9 % (32.0-36.0); MONO % 10.2 % (0.0-8.0); NEUT % 81.4 % (16.0-70.0); PLATELET COUNT 223 TH/MM3 (150-450); RED BLOOD COUNT 2.38 MIL/MM3 (4.00-5.30); RED CELL DISTRIBUTION WIDTH 15.5 % (11.6-17.2); WHITE BLOOD COUNT 6.6 TH/MM3 (4.0-11.0)
[2016-11-29 12:28] LABS: HEMO FLAGS AUTO DIFF
[2016-11-29 12:31] LABS: HEMATOCRIT 21.1 % (35.0-46.0)
[2016-11-29 12:46] LABS: BICARBONATE 27.3 MEQ/L (21.0-32.0); POTASSIUM 4.1 MEQ/L (3.5-5.1)
[2016-11-29] MEDS ORDERED: FUROSEMIDE 20 MG/2 ML VIAL IV PUSH ONE (13:15)
--- NOTE | 2016-11-29 13:50 | HHI.PR ---
Subjective Remarks Follow-up for left hip fracture. The patient is seen with her family at bedside , who are feeding the patient lunch. The patient remains confused and disoriented. When asked if she has any pain she says yes, when asked if it's in her left hip she says yes. She denies any chest pain or shortness of breath. Reportedly the patient had some bleeding on her left hip dressing last night, no further bleeding reported overnight. The family is agreeable for blood transfusion. The family would however like to discuss with palliative care, as the patient did not do well at SNF for rehabilitation previously. 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 The patient has a known heart murmur. Objective Vitals Vital Signs Date Time Temp Pulse Resp B/P Pulse Ox O2 Delivery O2 Flow Rate FiO2 11/29/16 12:00 96.9 57 16 102/50 98 11/29/16 10:13 96 Nasal Cannula 2.00 11/29/16 08:00 100.5 89 20 138/70 96 11/29/16 04:00 98.5 75 16 121/58 97 11/29/16 00:00 97.4 93 16 143/67 96 11/28/16 20:00 97.3 92 17 178/86 93 11/28/16 17:33 97 Nasal Cannula 2.00 11/28/16 16:00 78 12 135/69 97 Nasal Cannula 2 11/28/16 16:00 96.3 79 16 181/79 95 11/28/16 15:45 77 13 140/60 95 Nasal Cannula 2 11/28/16 15:30 73 14 130/60 99 Nasal Cannula 2 11/28/16 15:20 97.7 76 15 138/62 99 Simple Mask 6 I/O 11/28/16 11/28/16 11/28/16 11/29/16 11/29/16 11/29/16 06:59 14:59 22:59 06:59 14:59 22:59 Intake Total 742 ml 890 ml 953 ml Output Total 425 ml 500 ml 625 ml 350 ml Balance 317 ml -500 ml 265 ml 603 ml Intake Oral 0 ml 240 ml 240 ml IV Total 742 ml 50 ml 713 ml Other 600 ml Output Urine Total 425 ml 500 ml 400 ml 350 ml Estimated Blood Loss 25 ml Other 200 ml # Bowel Movements 0 0 0 0 Result Diagram: 11/29/16 1200 11/29/16 1200 Imaging Last Impressions Hip X-Ray 11/28/16 0000 Signed Impressions: Service Date/Time: Monday, November 28, 2016 14:50 - CONCLUSION: Nail and ariana fixation of the left intertrochanteric fracture. Anatomic alignment. No acute complication demonstrated. Haris Rebolledo MD Thoracic Spine CT 11/27/161906 Signed Impressions: Service Date/Time: Sunday, November 27, 2016 20:06 - CONCLUSION: 1. Acute compression fracture of T11 with 2 mm of retropulsion and 50%% loss of height. 2. Old T9 compression fracture. 3. Scoliotic curvature and osteopenia. 4. Large hiatal hernia. Quintin Galdamez Jr., MD Lumbar Spine CT 11/27/161906 Signed Impressions: Service Date/Time: Sunday, November 27, 2016 20:06 - CONCLUSION: 1. No acute fracture or subluxation of the lumbar spine. 2. There is a subacute or older mild compression fracture of L2. No associated foraminal or spinal stenosis. 3. Mid and lower lumbar predominant degenerative changes as above. 4. Nonacute and substantially healed i fractures of the sacrum. I don't see an acute fracture of the visualized sacrum. Haris Rebolledo MD Head CT 11/27/161906 Signed Impressions: Service Date/Time: Sunday, November 27, 2016 20:00 - CONCLUSION: Motion degraded study. No bleed or other acute intracranial abnormality demonstrated. 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 Haris Rebolledo MD Cervical Spine CT 11/27/161906 Signed Impressions: Service Date/Time: Sunday, November 27, 2016 20:00 - CONCLUSION: No fracture or acute appearing malalignment demonstrated of the cervical spine. Haris Rebolleod MD Pelvis CT 11/27/16 0000 Signed Impressions: Service Date/Time: Sunday, November 27, 2016 20:06 - CONCLUSION: 1. No comminuted intertrochanteric fracture on the left. 2. Prior right intertrochanteric hip fracture with orthopedic hardware. 3. 5 cm hematoma involving the posterior left hip. Quintin Galdamez Jr., MD Objective Remarks GENERAL: Well-developed well-nourished. In no acute distress. SKIN: Warm and dry. Right thigh and knee with mild ecchymosis, unchanged from previous surgery per family. HEENT: Normocephalic. Pupils equal and round. Mucous membranes pink and moist. CARDIOVASCULAR: Regular rate and rhythm. Systolic murmur appreciated. RESPIRATORY: No accessory muscle use. Clear to auscultation. Breath sounds equal bilaterally. GASTROINTESTINAL: Abdomen soft, non-tender, nondistended. Bowel sounds x4. MUSCULOSKELETAL: Left hip with clean dressing in place. Right hip with clean recent surgical sites. No clubbing or cyanosis. No edema. NEUROLOGICAL: Awake and alert. No focal neurological deficits. Moves upper and lower extremities spontaneously. Slightly garbled speech, chronic per family. PSYCHIATRIC: Pleasantly demented mood and affect; insight and judgment poor. A/P Problem List: (1) Recurrent falls ICD Code: R29.6 Status: Acute (2) Hip fracture, intertrochanteric ICD Code: S72.143A Status: Acute (3) Thoracic compression fracture ICD Code: S22.000A Status: Acute (4) Dementia ICD Code: F03.90 Status: Chronic Assessment and Plan //Postop left hip ORIF 11/28/16 secondary to fracture -Postoperative management as per surgical service -Pain management as per surgical service. -Await return of bowel function. //Recurrent Falls: sent to ER from SNF secondary to fall at facility, details still unclear. CT Head, CT C-Spine w/ no acute fracture. -Patient with recent right hip fracture month ago. -Appreciate physical therapy assistance. -Family is apprehensive about continued aggressive rehabilitation and are interested in discussing further options with palliative care will consult. //CT T-Spine w/ acute T-11 compression fracture. //CT L-Spine w/ subacute L1 fx -Patient not complaining of any pain. Sensation and lower extremity strength appears to be intact. -Pain management -Physical therapy consult placed. // Dementia: Severe Dementia. //Agitation postop 11/28. -Continue home Geodon at 9 AM and with dinner. -Continue Klonopin. Ativan prn. -Continued reorientation. Restraints as needed. //Postoperative anemia Hemoglobin 6.9 today. No further bleeding noted today. -Transfuse 2 units PRBCs, Lasix afterwards. -Monitor H&H //DVT Prophylaxis: SCD/Teds. Anticoagulation as per surgical service. Written by Mauricio Roberts, acting as scribe for Dr. Parisi on 11/29/16 at 13:50. Discharge Planning Disposition pending clinical course Attending Statement The documentation accurately reflects the work performed [id number] by me, Dr. Parisi on 11/29/16 at 13:50. Problem Qualifiers (1) Hip fracture, intertrochanteric: Qualified Code: S72.145A - Closed nondisplaced intertrochanteric fracture of left femur, initial encounter (2) Dementia: Qualified Code: F03.90 - Dementia without behavioral disturbance, unspecified dementia type Mauricio Roberts Nov 29, 2016 13:50 Darrell Parisi MD Nov 30, 2016 02:40
[2016-11-29] MEDS ORDERED: ENOXAPARIN SODIUM 30 MG/0.3 ML SYRINGE SQ SCH (14:00)
[2016-11-29 14:01] LABS: PLATELET ESTIMATE SMEAR NORMAL (NORMAL); SCAN/DIFF AUTO DIFF CONFIRMED
[2016-11-29 14:02] LABS: PLATELET MORPHOLOGY NORMAL (NORMAL)
--- NOTE | 2016-11-29 17:34 | PD.CONS ---
Consult Service Palliative Care . Consult Requested By Olivia DOMINGUEZ . Primary Care Physician Unknown . Reason for Consultation a. To assist with evaluation and management of symptoms including: post- operative pain; confusion b. To assist medical decision maker(s) with: better understanding of current medical conditions; weighing benefits/burdens of medical treatment options; making medical treatment decisions. . HPI History of Present Illness Ms. Nielsen is an 81-year-old female with a history of cerebrovascular disease; probable vascular dementia; TIAs; coronary artery disease; anxiety; depression; and hypertension who was brought to [facility] Emergency Department on 11/27 after suffering a fall in her nursing facility ([facility]) and complaining of left hip and lower back pain. The patient had just been hospitalized from 11/16/16 through 11/21/16 also after suffering a fall which caused a right intertrochanteric hip fracture for which she underwent open reduction and internal fixation on 11/17/16. In the emergency department and vital signs were as follows: Temperature 98.1; pulse 78; respiratory rate 15; blood pressure 146/71; pulse oximetry 91% on room air Physical examination performed by the emergency department physician noted the following: Patient was noncommunicative and in moderate distress. There was a skin tear on the left elbow and significant ecchymosis involving the right lower extremity. There was discomfort with movement of either lower extremity. Patient was mostly nonverbal attributed to her dementia. The remainder of the physical exam was unremarkable. Initial diagnostic testing revealed the following: * CBC showed WBC 6.7; hemoglobin 9.2; platelet count 275 * Coagulation profile showed PT 10.9; INR 1.0; PTT 26.1 * Metabolic profile showed sodium 136; potassium 5.1; chloride 101; CO2 27.2; anion gap 8; BUN 29; creatinine 1.39; GFR 36; glucose 92; calcium 8.3 * CT imaging of the left hip revealed a nondisplaced intertrochanteric fracture. * CT imaging also revealed an acute compression fracture of T11. The patient was admitted to the [facility] Hospitalist service. Orthopedics was consulted. The patient was taken to surgery on 11/28/2016 and underwent left hip reduction and intramedullary nail fixation by Dr. Guzman. The patient was seen earlier today and appeared to be doing well. She was eating lunch. She remained confused and disoriented. She answered "yes" when asked about pain but was unable to qualify or quantify that pain. A review of the patient's medication administration record shows no need for opiate analgesics today. There was some bleeding on the dressing last night and hemoglobin level came in at 6.9 this morning. Family has agreed to blood transfusion. Family also inquired about palliative care. They reported that the patient did not do well in her longterm facility for rehabilitation probably due to her severe dementia. . Function/Cognitive Trajectory Per family, patient has had a 10 year history of vascular dementia. This was attributed to noncompliance of blood pressure medications in the past. Family also reports she has had multiple TIAs. . Review of Systems ROS Limitations: Clinical Condition (Patient is unable to provide ROS due to her dementia. Family is unavailable at this time.) Past Family Social History Coded Allergies: Aricept (Verified Allergy, Severe, 11/27/16) unknown Clonidine (Verified Allergy, Severe, 11/27/16) unknown Past Medical History * Cerebrovascular disease * TIAs * Vascular Dementia * Coronary artery disease status post cardiac stenting * Recurrent falls * Osteoporosis with compression fractures * Depression * Anxiety * Skin cancer . . Past Surgical History * Cholecystectomy * Cardiac stenting * Tonsillectomy * Right hip ORIF . Reported Medications Prehospital medications from her nursing facility included the following: Klonopin (Clonazepam) 1 Mg Tab 1 Mg PO HS Lovenox Inj (Enoxaparin Sodium) 40 Mg/0.4 Ml Syr 40 Mg SQ Q24H Tippecanoe (Hydrocodone-Acetaminophen) 5-325 mg Tab 1 Tab PO Q4H PRN Lactulose Liq (Lactulose) 10 Gm/15 Ml Soln 30 Ml PO HS PRN Labetalol (Labetalol HCl) 100 Mg Tab 100 Mg PO TID Ferrous Sulfate 325 Mg Tab 325 Mg PO DAILY Geodon (Ziprasidone) 40 Mg Cap 40 Mg PO BID Vitamin D3 (Cholecalciferol) 1,000 Unit Cap 1,000 Units PO DAILY Vitamin B-12 Cr (Cyanocobalamin) 1,000 Mcg Tab 1,000 Mcg PO DAILY Potassium Chloride Liq (Potassium Chloride) 20 Meq/15 Ml Soln 20 Meq PO DAILY Paxil (Paroxetine HCl) 40 Mg Tab 37.5 Mg PO DAILY take two tabs Isosorbide Dinitrate SA (Isosorbide Dinitrate) 40 Mg Tab 60 Mg PO DAILY Furosemide 20 Mg Tab 20 Mg PO DAILY Aspirin 81 Mg Tabdr 81 Mg PO DAILY . Current Medications Medications (Trade) Dose Ordered Sig/[place] Route Start Time Stop Time Status Last Admin (NS 1000 ml Inj) 1,000 ml @ 100 mls/hr Q10H IV 11/27/16 21:30 11/28/16 06:41 (Zofran Inj) 4 mg Q6H PRN IVP 11/27/16 21:30 (Dulcolax Supp) 10 mg DAILY PRN TX 11/27/16 21:30 (Tylenol) 650 mg Q6H PRN PO 11/27/16 21:30 (Ativan Inj) 1 mg Q3H PRN IV PUSH 11/27/16 21:30 (KlonoPIN) 1 mg HS PO 11/28/16 21:00 11/28/16 22:03 (Ferrous Sulfate) 325 mg DAILY PO 11/28/16 09:00 11/29/16 09:13 (Lasix) 20 mg DAILY PO 11/28/16 09:00 11/29/16 09:13 (Imdur) 60 mg DAILY PO 11/28/16 09:00 11/29/16 09:13 (Trandate) 100 mg TID PO 11/28/16 09:00 11/29/16 09:13 Paroxetine HCl 37.5 mg 37.5 mg DAILY PO 11/28/16 09:00 11/29/16 09:13 (Lr 1000 ml Inj) 1,000 ml @ 30 mls/hr Q24H IV 11/28/16 03:15 (NS Flush) 2 ml UNSCH PRN IVF 11/28/16 15:00 (NS Flush) 2 ml BID IVF 11/28/16 21:00 11/29/16 09:13 (Tippecanoe 5-325 Mg) 1 tab Q4H PRN PO 11/28/16 15:00 ([place] 5-325 Mg) 2 tab Q6H PRN PO 11/28/16 15:00 (Oscal-D 250-125) 250 mg TID PO 11/28/16 18:00 11/29/16 09:13 (Benadryl) 25 mg Q6H PRN PO 11/28/16 15:00 (Morphine Inj) 3 mg Q3H PRN IV PUSH 11/28/16 15:00 11/28/16 16:56 (Vitamin D3) 5,000 units DAILY PO 11/29/16 09:00 11/29/16 09:13 (Geodon) 40 mg DAILY PO 11/29/16 09:00 11/29/16 09:13 (Geodon) 40 mg DAILY@1600 PO 11/29/16 16:00 . Family History * Mother at age 67 from a myocardial infarction. . Substance Use Tobacco: No recent use Alcohol: No history of abuse Prescription med abuse: No history of abuse Illicits: No known use of illicits . Psychosocial History Pending discussion with family. . Spiritual/Cultural Factors Pending discussion with family. . Living Will: Copy in medical record Health Care Surrogate: Copy in medical record Durable Power of Communication Equipment Repairer: Copy in medical record Date completed: 05/05/1997 Health Care Surrogate(s): Patient has designated her son (Booker Nielsen) as health care surrogate and health care power of e/m engineer. Documented care wishes: Living will states that patient would not want life prolonging measures should she be found to have a terminal or end stage condition. . Today's verbally stated goals: Patient is unable to state her own health care goals/preferences and will not regain the ability to do so. . Family/friends goals: Pending discussion with family. . Ethical and Legal Issues Patient is incapacitated to make her own health care decisions and will not regain capacity in my clinical opinion. . Physical Exam Vital Signs Date Time Temp Pulse Resp B/P Pulse Ox O2 Delivery O2 Flow Rate FiO2 11/29/16 15:25 99.7 75 20 104/51 97 11/29/16 12:00 96.9 57 16 102/50 98 11/29/16 10:13 96 Nasal Cannula 2.00 11/29/16 08:00 100.5 89 20 138/70 96 11/29/16 04:00 98.5 75 16 121/58 97 11/29/16 00:00 97.4 93 16 143/67 96 11/28/16 20:00 97.3 92 17 178/86 93 11/28/16 17:33 97 Nasal Cannula 2.00 . 11/28/16 11/29/16 19:00 07:00 Intake Total 650 ml 1193 ml Output Total 725 ml 750 ml Balance -75 ml 443 ml Intake Oral 480 ml IV Total 50 ml 713 ml Other 600 ml Output Urine Total 500 ml 750 ml Estimated Blood Loss 25 ml Other 200 ml # Bowel Movements 0 0 . Exam CONSTITUTIONAL/GENERAL: This is an adequately nourished patient. She is confused but can follow simple directions and speak in simple phrases. TUBES/LINES/DRAINS: Peripheral IV. SKIN: Pale. No jaundice, rashes, or lesions. Healed surgical wound on right hip. Well approximated fresh surgical wound on left hip with ecchymosis. Left elbow skin tear. Not diaphoretic. HEAD: Atraumatic. Normocephalic. EYES: Pupils equal and round and reactive. Extraocular motions intact. No scleral icterus. No injection or drainage. Fundi not examined. ENT: Hearing grossly normal. Nose without bleeding or purulent drainage. Throat without visible erythema, exudates, masses, or lesions. NECK: Trachea midline. Supple, nontender. No palpable thyroid enlargement or nodularity. CARDIOVASCULAR: Regular rate and rhythm without gallop or rub. There is a 2/6 systolic murmur. No JVD. Peripheral pulses symmetric. RESPIRATORY/CHEST: Symmetric, unlabored respirations. Clear to auscultation. Breath sounds equal bilaterally. No wheezes, rales, or rhonchi. GASTROINTESTINAL: Abdomen soft, non-tender, nondistended. No hepato-splenomegaly , or palpable masses. No guarding. Bowel sounds present. GENITOURINARY: Without palpable bladder distension. Haile catheter in place. MUSCULOSKELETAL: Surgical wounds over hips as described above. Extremities otherwise without clubbing, cyanosis, or edema. No joint tenderness or effusion noted. No calf tenderness. LYMPHATICS: No palpable cervical or supraclavicular adenopathy. NEUROLOGICAL: Awake and alert. Motor and sensory grossly within normal limits. Follows simple commands. Confused. Moves all extremities but guarded movement on LLE. PSYCHIATRIC: No obvious anxiety/depression. no apparent hallucinations or other psychotic thought process. . Diagnostic Tests Laboratory Laboratory Tests Test 11/27/16 11/28/16 11/29/16 11/29/16 19:15 06:11 12:00 13:32 White Blood Count 6.7 TH/MM3 7.3 TH/MM3 6.6 TH/MM3 (4.0-11.0) (4.0-11.0) (4.0-11.0) Red Blood Count 3.16 MIL/MM3 3.04 MIL/MM3 2.38 MIL/MM3 (4.00-5.30) (4.00-5.30) (4.00-5.30) Hemoglobin 9.2 GM/DL 8.8 GM/DL 6.9 GM/DL (11.6-15.3) (11.6-15.3) (11.6-15.3) Hematocrit 27.5 % 26.4 % 21.1 % (35.0-46.0) (35.0-46.0) (35.0-46.0) Mean Corpuscular Volume 87.1 FL 87.0 FL 88.8 FL (80.0-100.0) (80.0-100.0) (80.0-100.0) Mean Corpuscular Hemoglobin 29.1 PG 29.1 PG 29.2 PG (27.0-34.0) (27.0-34.0) (27.0-34.0) Mean Corpuscular Hemoglobin 33.3 % 33.4 % 32.9 % Concent (32.0-36.0) (32.0-36.0) (32.0-36.0) Red Cell Distribution Width 15.6 % 15.4 % 15.5 % (11.6-17.2) (11.6-17.2) (11.6-17.2) Platelet Count 275 TH/MM3 259 TH/MM3 223 TH/MM3 (150-450) (150-450) (150-450) Mean Platelet Volume 8.7 FL 8.6 FL 8.6 FL (7.0-11.0) (7.0-11.0) (7.0-11.0) Neutrophils (%) (Auto) 78.2 % 79.8 % 81.4 % (16.0-70.0) (16.0-70.0) (16.0-70.0) Lymphocytes (%) (Auto) 10.8 % 9.6 % 7.7 % (9.0-44.0) (9.0-44.0) (9.0-44.0) Monocytes (%) (Auto) 8.2 % (0.0-8.0) 9.2 % (0.0-8.0) 10.2 % (0.0-8.0) Eosinophils (%) (Auto) 2.1 % (0.0-4.0) 0.8 % (0.0-4.0) 0.3 % (0.0-4.0) Basophils (%) (Auto) 0.7 % (0.0-2.0) 0.6 % (0.0-2.0) 0.4 % (0.0-2.0) Neutrophils # (Auto) 5.2 TH/MM3 5.8 TH/MM3 5.4 TH/MM3 (1.8-7.7) (1.8-7.7) (1.8-7.7) Lymphocytes # (Auto) 0.7 TH/MM3 0.7 TH/MM3 0.5 TH/MM3 (1.0-4.8) (1.0-4.8) (1.0-4.8) Monocytes # (Auto) 0.5 TH/MM3 0.7 TH/MM3 0.7 TH/MM3 (0-0.9) (0-0.9) (0-0.9) Eosinophils # (Auto) 0.1 TH/MM3 0.1 TH/MM3 0.0 TH/MM3 (0-0.4) (0-0.4) (0-0.4) Basophils # (Auto) 0.0 TH/MM3 0.0 TH/MM3 0.0 TH/MM3 (0-0.2) (0-0.2) (0-0.2) CBC Comment DIFF FINAL DIFF FINAL AUTO DIFF Differential Comment AUTO DIFF CONFIRMED Prothrombin Time 10.9 SEC (9.8-11.6) Prothromb Time International 1.0 RATIO Ratio Activated Partial 26.1 SEC Thromboplast Time (24.3-30.1) Sodium Level 136 MEQ/L 138 MEQ/L 139 MEQ/L (136-145) (136-145) (136-145) Potassium Level 5.1 MEQ/L 4.5 MEQ/L 4.1 MEQ/L (3.5-5.1) (3.5-5.1) (3.5-5.1) Chloride Level 101 MEQ/L 105 MEQ/L 105 MEQ/L (98-107) (98-107) (98-107) Carbon Dioxide Level 27.2 MEQ/L 27.7 MEQ/L 27.3 MEQ/L (21.0-32.0) (21.0-32.0) (21.0-32.0) Anion Gap 8 MEQ/L (5-15) 5 MEQ/L (5-15) 7 MEQ/L (5-15) Blood Urea Nitrogen 29 MG/DL (7-18) 27 MG/DL (7-18) 22 MG/DL (7-18) Creatinine 1.39 MG/DL 1.23 MG/DL 0.99 MG/DL (0.50-1.00) (0.50-1.00) (0.50-1.00) Estimat Glomerular Filtration 36 ML/MIN (>89) 42 ML/MIN (>89) 54 ML/MIN (>89) Rate Random Glucose 92 MG/DL 88 MG/DL 110 MG/DL (74-106) (74-106) (74-106) Calcium Level 8.3 MG/DL 7.9 MG/DL 7.9 MG/DL (8.5-10.1) (8.5-10.1) (8.5-10.1) Blood Type A POSITIVE Antibody Screen NEGATIVE Total Bilirubin 0.9 MG/DL (0.2-1.0) Aspartate Amino Transf 31 U/L (15-37) (AST/SGOT) Alanine Aminotransferase 23 U/L (10-53) (ALT/SGPT) Alkaline Phosphatase 100 U/L (45-117) Total Protein 6.2 GM/DL (6.4-8.2) Albumin 2.8 GM/DL (3.4-5.0) 25-Hydroxy Vitamin D Total 38.1 ng/ML (30-100) Platelet Estimate NORMAL (NORMAL) Platelet Morphology Comment NORMAL (NORMAL) Hematology Comments Crossmatch Leukocyte-Reduced Red Blood Cells Blood Bank Comment . Result Diagram: 11/29/16 1200 11/29/16 1200 Imaging Last Impressions Hip X-Ray 11/28/16 0000 Signed Impressions: Service Date/Time: Monday, November 28, 2016 14:50 - CONCLUSION: Nail and ariana fixation of the left intertrochanteric fracture. Anatomic alignment. No acute complication demonstrated. Haris Rebolledo MD Thoracic Spine CT 11/27/161906 Signed Impressions: Service Date/Time: Sunday, November 27, 2016 20:06 - CONCLUSION: 1. Acute compression fracture of T11 with 2 mm of retropulsion and 50%% loss of height. 2. Old T9 compression fracture. 3. Scoliotic curvature and osteopenia. 4. Large hiatal hernia. Quintin Galdamez Jr., MD Lumbar Spine CT 11/27/161906 Signed Impressions: Service Date/Time: Sunday, November 27, 2016 20:06 - CONCLUSION: 1. No acute fracture or subluxation of the lumbar spine. 2. There is a subacute or older mild compression fracture of L2. No associated foraminal or spinal stenosis. 3. Mid and lower lumbar predominant degenerative changes as above. 4. Nonacute and substantially healed i fractures of the sacrum. I don't see an acute fracture of the visualized sacrum. Haris Rebolledo MD Head CT 11/27/161906 Signed Impressions: Service Date/Time: Sunday, November 27, 2016 20:00 - CONCLUSION: Motion degraded study. No bleed or other acute intracranial abnormality demonstrated. 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 Haris Rebolledo MD Cervical Spine CT 11/27/161906 Signed Impressions: Service Date/Time: Sunday, November 27, 2016 20:00 - CONCLUSION: No fracture or acute appearing malalignment demonstrated of the cervical spine. Haris Rebolledo MD Pelvis CT 11/27/16 0000 Signed Impressions: Service Date/Time: Sunday, November 27, 2016 20:06 - CONCLUSION: 1. No comminuted intertrochanteric fracture on the left. 2. Prior right intertrochanteric hip fracture with orthopedic hardware. 3. 5 cm hematoma involving the posterior left hip. Quintin Galdamez Jr., MD . Procedures * Intramedullary ariana fixation of left hip fracture 11/28/16 . Patient/Family Conference Present at Family Conference: Family conference scheduled for 11/30/16 . Issues Discussed: Assessment and Plan Disease Oriented Problem List: (1) Hip fracture, intertrochanteric (2) Postoperative anemia due to acute blood loss (3) Cerebrovascular disease (4) Vascular dementia (5) History of TIAs (6) Osteoporosis (7) Thoracic compression fracture (8) Recurrent falls Symptom Scale: (1) Pain 0-10 Scale: Unable to quantify Comment: Patient is unable to localize , quantify, or qualify pain due to dementia. sources of pain would include post-op pain from her new hip repair. She also has a number of compression fractures which might be painful. . (2) Confusion 0-10 Scale: Unable to quantify Comment: Patient has a 10 year history of progressive vascular dementia. she has essentially no short term memory. She also is likely experiencing some delirium from a combination of factors including medication and a foreign environment. . Pertinent Non-Medical Issues Psychosocial: Pending Spiritual:Pending Legal: Living will and Power of e/m engineer forms on chart. Son-- Booker Nielsen - - is the health care surrogate and medical/financial POA. Ethical issues impacting care: Patient is incapacitated and will not be regaining capacity. . Important Contacts * Booker Nielsen (son) [phone] * Paola Nielsen [phone] . Prognosis The patient's vascular dementia will continue to be progressive. The patient will not be able to benefit much from PT per her last experience. If/when she does get out of bed, she will be a very big fall risk. If she does not get out of bed, she will be at increased risk of pneumonia, skin breakdown, etc. Her vascular dementia is, in essence, an end stage condition. There is no treatment and it will get progressively worse. Her living will specifically says she would not want life prolonging measures if she should have an end stage condition. Depending on her surrogate's interpretation of her goals/ preferences, this could also mean she would not want antibiotics, blood transfusions, etc. Will need to speak with surrogate to best understand goals/preferences. . Code Status: No Code Plan == Code Status : NO CODE == Decision Making: The patient's son -- Booker Nielsen -- is both health care surrogate and power or e/m engineer. Patient is incapacitated and will not regain capacity. == Goals of medical treatment: Living will states no life prolonging measures if she should be found to have and end stage condition. Her vascular dementia is essentially an end stage condition. Will need to discuss with surrogate to see how he would like this interpreted and honored. Family meeting will take place on 11/30/16. == Pain: Patient has understandable post operative pain. She may also be experiencing pain from her compression fractures. Current orders appear to be adequate. Pain management will be challenging as patient's dementia makes it difficult for her to localize/quantify/qualify pain. Will need to rely on non- verbal cues. Current orders appear adequate. No further recommendations at this time. == Confusion: Confusion is probably due to a combination of her underlying vascular dementia and a multi-factorial delirium. Her confusion is likely to make PT and rehab difficult. She will also remain a great fall risk and per nursing staff she is already pulling dressings off and making care challenging. It will be difficult to manage agitated confusion without sedating her and sedation will interfere with the limited rehab potential she has. == Falls: She remains at risk for falls because of her confusion and weakness. Falls place her at risk for use of anti-coagulation. On the other hand she has a history of TIAs and recent hip fractures so there are certainly risks of NOT anti-coagulating. I would certainly agree with a decision to forego anti-coagulation under the circumstances. Family should be aware of the risks in both directions. == Will get additional medical and psychosocial/spiritual history at time of family meeting on 11/30/16. == Palliative care will continue to follow to assist with symptom management and to further clarify goals of medical treatment as the clinical course evolves. . Thank you for the opportunity to participate in the care of Ms. Nielsen. . Attestation To help prompt me to consider important information that might be impacting today's encounter and assessment, information from prior notes written by myself or my colleagues may have been "brought forward" into today's note. My signature on this note, however, is an attestation that I personally performed the exam, history, and/or decision-making noted today, and, unless otherwise indicated, the interactions with patient, family, and staff as well as the review of records all occurred today. I also attest that the listed assessment and stated plan reflect my best clinical judgment today based on the combination of historical information, prior notes, and today's exam/ interactions. When time spent is documented, it refers only to time spent today by the signer, or if indicated, combined time spent today by collaborating physician/nurse practitioner. . Vikash Garcia MD Nov 29, 2016 17:34
[2016-11-29] MEDS: ACETAMINOPHEN/HYDROcodone 325 MG/5 MG TAB PO PRN (18:49)
[2016-11-29] MEDS: clonazePAM 1 MG TAB PO SCH (21:10)
[2016-11-30] VITALS (8 sets, daily range): BP systolic 103–172; BP diastolic 52–72; PULSE 53–79; RESP 15–20; TEMP 96.4–99; O2SAT 93–99
[2016-11-30] MEDS: LACTATED RINGER'S 1000 ML IV SCH (03:15)
[2016-11-30] MEDS: ACETAMINOPHEN/HYDROcodone 325 MG/5 MG TAB PO PRN ×3 (04:05→17:28)
--- NOTE | 2016-11-30 06:48 | PD.ORT.PN ---
Subjective Subjective Remarks Lisa is awake. She is confused. She does complain of some left hip pain. Objective Vitals Vital Signs Date Time Temp Pulse Resp B/P Pulse Ox O2 Delivery O2 Flow Rate FiO2 11/30/16 04:21 97.9 72 16 172/69 93 11/30/16 03:35 97.9 79 20 172/69 93 11/30/16 03:20 99.0 79 20 156/65 93 11/30/16 00:36 98.9 66 16 118/56 98 11/29/16 23:01 99.1 68 19 107/64 93 11/29/16 20:36 99.0 64 15 98/50 99 11/29/16 19:20 99.0 70 16 88/53 97 11/29/16 19:00 99.7 79 20 129/66 92 11/29/16 15:25 99.7 75 20 104/51 97 11/29/16 12:00 96.9 57 16 102/50 98 11/29/16 10:13 96 Nasal Cannula 2.00 11/29/16 08:00 100.5 89 20 138/70 96 I/O 11/29/16 11/29/16 11/29/16 11/30/16 11/30/16 11/30/16 06:59 14:59 22:59 06:59 14:59 22:59 Intake Total 953 ml 1200 ml 380 ml Output Total 350 ml 1525 ml 1775 ml Balance 603 ml -325 ml -1395 ml Intake Oral 240 ml 1200 ml 380 ml IV Total 713 ml Output Urine Total 350 ml 1525 ml 1775 ml # Bowel Movements 0 0 0 Result Diagram: 11/29/16 1200 11/29/16 1200 Imaging Last 24 hours Impressions Thoracic Spine CT 11/27/161906 Signed Impressions: Service Date/Time: Sunday, November 27, 2016 20:06 - CONCLUSION: 1. Acute compression fracture of T11 with 2 mm of retropulsion and 50%% loss of height. 2. Old T9 compression fracture. 3. Scoliotic curvature and osteopenia. 4. Large hiatal hernia. Quintin Galdamez Jr., MD Lumbar Spine CT 11/27/161906 Signed Impressions: Service Date/Time: Sunday, November 27, 2016 20:06 - CONCLUSION: 1. No acute fracture or subluxation of the lumbar spine. 2. There is a subacute or older mild compression fracture of L2. No associated foraminal or spinal stenosis. 3. Mid and lower lumbar predominant degenerative changes as above. 4. Nonacute and substantially healed i fractures of the sacrum. I don't see an acute fracture of the visualized sacrum. Haris Rebolledo MD Head CT 11/27/161906 Signed Impressions: Service Date/Time: Sunday, November 27, 2016 20:00 - CONCLUSION: Motion degraded study. No bleed or other acute intracranial abnormality demonstrated. 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 Haris Rebolledo MD Cervical Spine CT 11/27/161906 Signed Impressions: Service Date/Time: Sunday, November 27, 2016 20:00 - CONCLUSION: No fracture or acute appearing malalignment demonstrated of the cervical spine. Haris Rebolledo MD Objective Remarks LLE: dressing clean and dry. intact. Minimal pain with gentle hip motion . NVI left leg Assessment & Plan Assessment and Plan Left intertrochanteric femur fracture s/p IMN - POD 1 -WBAT -daily dressing changes POD 2 -CM for rehab placement -f/u with [facility] or [facility] in 2 weeks Simone Herrera MD Nov 30, 2016 06:48
[2016-11-30] MEDS: ISOSORBIDE MONONITRATE 60 MG TAB PO SCH (08:34)
[2016-11-30] MEDS: CHOLECALCIFEROL (VIT D3) 5000 UNIT CAP PO SCH (08:34)
[2016-11-30] MEDS: LABETALOL HCL 100 MG TAB PO SCH ×3 (08:34→17:28)
[2016-11-30] MEDS: ZIPRASIDONE HCL 40 MG CAP PO SCH ×2 (08:34→17:28)
[2016-11-30] MEDS: FUROSEMIDE 20 MG TAB PO SCH (08:34)
[2016-11-30] MEDS: CALCIUM/VITAMIN D 250 MG/125 U TAB PO SCH ×3 (08:34→17:28)
[2016-11-30] MEDS: FERROUS SULFATE 325 MG (65 MG ELEMENTAL IRON) TAB PO SCH (08:34)
[2016-11-30] MEDS: SODIUM CHLOR 0.9% 1000 ML INJ 1,000 ML IV SCH ×2 (08:39→17:34)
[2016-11-30] MEDS: SODIUM CHLORIDE 0.9% FLUSH 5 ML FLUSH IVF SCH ×2 (08:39→20:08)
[2016-11-30] MEDS: PARoxetine HCL 37.5 MG CONTROLLED RELEASE TAB PO SCH ×2 (08:44→13:26)
--- NOTE | 2016-11-30 10:26 | HHI.HCPN ---
Reason for visit a. To assist with evaluation and management of symptoms including: post- operative pain; confusion b. To assist medical decision maker(s) with: better understanding of current medical conditions; weighing benefits/burdens of medical treatment options; making medical treatment decisions. . Subjective/Interval History Ms. Nielsen was medicated at 0405 this AM for #4 pain which resulted in her falling asleep. At time of my visit, she is awake but drowsy. She is confused , but denies pain. Her previous dose of opiate analgesia was on 11/28/16. She smiles. Tmax 99.1. RR 16-20; Variable BPs 107-172/56- 72; Pulse oximety around 93 on RA. Urine output good. No bowel movement since admission. No new CBC/lytes/imaging today. From the initial palliative care note of Dr. Garcia from 11/29/16... Ms. Nielsen is an 81-year-old female with a history of cerebrovascular disease; probable vascular dementia; TIAs; coronary artery disease; anxiety; depression; and hypertension who was brought to [facility] Emergency Department on 11/27 after suffering a fall in her nursing facility ([facility]) and complaining of left hip and lower back pain. The patient had just been hospitalized from 11/16/16 through 11/21/16 also after suffering a fall which caused a right intertrochanteric hip fracture for which she underwent open reduction and internal fixation on 11/17/16. In the emergency department and vital signs were as follows: Temperature 98.1; pulse 78; respiratory rate 15; blood pressure 146/71; pulse oximetry 91% on room air Physical examination performed by the emergency department physician noted the following: Patient was noncommunicative and in moderate distress. There was a skin tear on the left elbow and significant ecchymosis involving the right lower extremity. There was discomfort with movement of either lower extremity. Patient was mostly nonverbal attributed to her dementia. The remainder of the physical exam was unremarkable. Initial diagnostic testing revealed the following: * CBC showed WBC 6.7; hemoglobin 9.2; platelet count 275 * Coagulation profile showed PT 10.9; INR 1.0; PTT 26.1 * Metabolic profile showed sodium 136; potassium 5.1; chloride 101; CO2 27.2; anion gap 8; BUN 29; creatinine 1.39; GFR 36; glucose 92; calcium 8.3 * CT imaging of the left hip revealed a nondisplaced intertrochanteric fracture. * CT imaging also revealed an acute compression fracture of T11. [facility]. The patient was taken to surgery on 11/28/2016 and underwent left hip reduction and intramedullary nail fixation by Dr. Guzman. The patient was seen earlier today and appeared to be doing well. She was eating lunch. She remained confused and disoriented. She answered "yes" when asked about pain but was unable to qualify or quantify that pain. A review of the patient's medication administration record shows no need for opiate analgesics today. There was some bleeding on the dressing last night and hemoglobin level came in at 6.9 this morning. Family has agreed to blood transfusion. Family also inquired about palliative care. They reported that the patient did not do well in her retirement facility for rehabilitation probably due to her severe dementia. . Family/friend interactions Met with sonBooker (the health care surrogate ) for about 40 minutes . Additional psychosocial/spiritual history provided... * Originally from [place]. Lived in [place] since 1983. May have had masters degree. Worked at [employer] for years. * once, then . * 4 children. Daughter in [place]. Sons in [place], [place] and locally. $ grandchildren, 4 greatgrancdhildren. * Had two sisters -- one . * Bahai/spirituality were not an important part of her life. Son and son's family are Jehovah's Witnesses. Lubricating Engineer offered and declined. Functional status * Patient has had progressively worsening vascular dementia for about 10 years. 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 She continues to feel driven to be up and about there. * Prior to her first hip fracture, she was ambulatory without a device; could feed herself; was incontinent; needed assistance with dressing/bathing. * SHe had suffered a fall and pelvic fracture even before the first of her hip fractures. ROS: * Hearing OK. Needs glasses but won't wear them. * No respiratory complaints. * Heart disease is stable without symptoms since stent. * Mild constipation issues, otherwise no GI complaints. * Incontinence-- otherwise no complaints. * Bilateral knee arthritis. * Agitation frequent especially in evenings -- helped by Suze. Family Hx; * Mother of [place] * Father of stroke * Sister had some congenital abnormalities and had severe Parkinson's disease. Substance use: * Rare social tobacco use * Rare social EtOH use. No history of abuse * No use of illicits. . Advance Directives Living Will: Copy in medical record Health Care Surrogate: Copy in medical record Durable Power of Contact Center Consultant: Copy in medical record Advance Directive Specifics Date completed: 05/05/1997 Health Care Surrogate(s): Patient has designated her son (Booker Nielsen) as health care surrogate and health care power of deputy commonwealth's attorney. Documented care wishes: Living will states that patient would not want life prolonging measures should she be found to have a terminal or end stage condition. . Objective Vital Signs Date Time Temp Pulse Resp B/P Pulse Ox O2 Delivery O2 Flow Rate FiO2 11/30/16 08:10 96.6 70 16 168/72 96 11/30/16 04:21 97.9 72 16 172/69 93 11/30/16 03:35 97.9 79 20 172/69 93 11/30/16 03:20 99.0 79 20 156/65 93 11/30/16 00:36 98.9 66 16 118/56 98 11/29/16 23:01 99.1 68 19 107/64 93 11/29/16 20:36 99.0 64 15 98/50 99 11/29/16 19:20 99.0 70 16 88/53 97 11/29/16 19:00 99.7 79 20 129/66 92 11/29/16 15:25 99.7 75 20 104/51 97 11/29/16 12:00 96.9 57 16 102/50 98 Intake & Output 11/30/16 11/30/16 07:00 19:00 Intake Total 860 ml Output Total 2650 ml Balance -1790 ml Intake Oral 860 ml Output Urine Total 2650 ml # Bowel Movements 0 . Physical Exam CONSTITUTIONAL/GENERAL: This is an adequately nourished patient. She is confused but can follow simple directions and speak in simple phrases. Drowsy. TUBES/LINES/DRAINS: Peripheral IV. Soft wrist restraints. SCDs in place. SKIN: Pale. No jaundice, rashes, or lesions. Healed surgical wound on right hip. Well approximated fresh surgical wound on left hip with ecchymosis. Left elbow skin tear. Not diaphoretic. HEAD: Faint bruising on left side of face, otherwise atraumatic. Normocephalic. EYES: Pupils equal and round. Extraocular motions intact. No scleral icterus. No injection or drainage. Fundi not examined. ENT: Hearing grossly normal. Nose without bleeding or purulent drainage. Throat without visible erythema, exudates, masses, or lesions. NECK: Trachea midline. Supple. CARDIOVASCULAR: Regular rate and rhythm without gallop or rub. There is a 3/6 systolic murmur. No JVD. Peripheral pulses symmetric. RESPIRATORY/CHEST: Symmetric, unlabored respirations. Clear to auscultation. Breath sounds equal bilaterally. No wheezes, rales, or rhonchi. GASTROINTESTINAL: Abdomen soft, non-tender, nondistended. No hepato-splenomegaly , or palpable masses. No guarding. Bowel sounds present. GENITOURINARY: Without palpable bladder distension. Haile catheter in place. MUSCULOSKELETAL: Surgical wounds over hips as described above. Extremities otherwise without clubbing, cyanosis, or edema. No calf tenderness. LYMPHATICS: Not examined. NEUROLOGICAL: Awake but drowsy. Follows simple commands. Confused. PSYCHIATRIC: No obvious anxiety/depression. no apparent hallucinations or other psychotic thought process. . Diagnostic Tests Laboratory Laboratory Tests Test 11/27/16 11/28/16 11/29/16 11/29/16 19:15 06:11 12:00 13:32 White Blood Count 6.7 TH/MM3 7.3 TH/MM3 6.6 TH/MM3 (4.0-11.0) (4.0-11.0) (4.0-11.0) Red Blood Count 3.16 MIL/MM3 3.04 MIL/MM3 2.38 MIL/MM3 (4.00-5.30) (4.00-5.30) (4.00-5.30) Hemoglobin 9.2 GM/DL 8.8 GM/DL 6.9 GM/DL (11.6-15.3) (11.6-15.3) (11.6-15.3) Hematocrit 27.5 % 26.4 % 21.1 % (35.0-46.0) (35.0-46.0) (35.0-46.0) Mean Corpuscular Volume 87.1 FL 87.0 FL 88.8 FL (80.0-100.0) (80.0-100.0) (80.0-100.0) Mean Corpuscular Hemoglobin 29.1 PG 29.1 PG 29.2 PG (27.0-34.0) (27.0-34.0) (27.0-34.0) Mean Corpuscular Hemoglobin 33.3 % 33.4 % 32.9 % Concent (32.0-36.0) (32.0-36.0) (32.0-36.0) Red Cell Distribution Width 15.6 % 15.4 % 15.5 % (11.6-17.2) (11.6-17.2) (11.6-17.2) Platelet Count 275 TH/MM3 259 TH/MM3 223 TH/MM3 (150-450) (150-450) (150-450) Mean Platelet Volume 8.7 FL 8.6 FL 8.6 FL (7.0-11.0) (7.0-11.0) (7.0-11.0) Neutrophils (%) (Auto) 78.2 % 79.8 % 81.4 % (16.0-70.0) (16.0-70.0) (16.0-70.0) Lymphocytes (%) (Auto) 10.8 % 9.6 % 7.7 % (9.0-44.0) (9.0-44.0) (9.0-44.0) Monocytes (%) (Auto) 8.2 % (0.0-8.0) 9.2 % (0.0-8.0) 10.2 % (0.0-8.0) Eosinophils (%) (Auto) 2.1 % (0.0-4.0) 0.8 % (0.0-4.0) 0.3 % (0.0-4.0) Basophils (%) (Auto) 0.7 % (0.0-2.0) 0.6 % (0.0-2.0) 0.4 % (0.0-2.0) Neutrophils # (Auto) 5.2 TH/MM3 5.8 TH/MM3 5.4 TH/MM3 (1.8-7.7) (1.8-7.7) (1.8-7.7) Lymphocytes # (Auto) 0.7 TH/MM3 0.7 TH/MM3 0.5 TH/MM3 (1.0-4.8) (1.0-4.8) (1.0-4.8) Monocytes # (Auto) 0.5 TH/MM3 0.7 TH/MM3 0.7 TH/MM3 (0-0.9) (0-0.9) (0-0.9) Eosinophils # (Auto) 0.1 TH/MM3 0.1 TH/MM3 0.0 TH/MM3 (0-0.4) (0-0.4) (0-0.4) Basophils # (Auto) 0.0 TH/MM3 0.0 TH/MM3 0.0 TH/MM3 (0-0.2) (0-0.2) (0-0.2) CBC Comment DIFF FINAL DIFF FINAL AUTO DIFF Differential Comment AUTO DIFF CONFIRMED Prothrombin Time 10.9 SEC (9.8-11.6) Prothromb Time International 1.0 RATIO Ratio Activated Partial 26.1 SEC Thromboplast Time (24.3-30.1) Sodium Level 136 MEQ/L 138 MEQ/L 139 MEQ/L (136-145) (136-145) (136-145) Potassium Level 5.1 MEQ/L 4.5 MEQ/L 4.1 MEQ/L (3.5-5.1) (3.5-5.1) (3.5-5.1) Chloride Level 101 MEQ/L 105 MEQ/L 105 MEQ/L (98-107) (98-107) (98-107) Carbon Dioxide Level 27.2 MEQ/L 27.7 MEQ/L 27.3 MEQ/L (21.0-32.0) (21.0-32.0) (21.0-32.0) Anion Gap 8 MEQ/L (5-15) 5 MEQ/L (5-15) 7 MEQ/L (5-15) Blood Urea Nitrogen 29 MG/DL (7-18) 27 MG/DL (7-18) 22 MG/DL (7-18) Creatinine 1.39 MG/DL 1.23 MG/DL 0.99 MG/DL (0.50-1.00) (0.50-1.00) (0.50-1.00) Estimat Glomerular Filtration 36 ML/MIN (>89) 42 ML/MIN (>89) 54 ML/MIN (>89) Rate Random Glucose 92 MG/DL 88 MG/DL 110 MG/DL (74-106) (74-106) (74-106) Calcium Level 8.3 MG/DL 7.9 MG/DL 7.9 MG/DL (8.5-10.1) (8.5-10.1) (8.5-10.1) Blood Type A POSITIVE Antibody Screen NEGATIVE Total Bilirubin 0.9 MG/DL (0.2-1.0) Aspartate Amino Transf 31 U/L (15-37) (AST/SGOT) Alanine Aminotransferase 23 U/L (10-53) (ALT/SGPT) Alkaline Phosphatase 100 U/L (45-117) Total Protein 6.2 GM/DL (6.4-8.2) Albumin 2.8 GM/DL (3.4-5.0) 25-Hydroxy Vitamin D Total 38.1 ng/ML (30-100) Platelet Estimate NORMAL (NORMAL) Platelet Morphology Comment NORMAL (NORMAL) Hematology Comments Crossmatch Leukocyte-Reduced Red Blood Cells Blood Bank Comment Test 11/30/16 06:36 Prothrombin Time 11.0 SEC (9.8-11.6) Prothromb Time International 1.0 RATIO Ratio . Result Diagram: 11/29/16 1200 11/29/16 1200 Imaging Last Impressions Hip X-Ray 11/28/16 0000 Signed Impressions: Service Date/Time: Monday, November 28, 2016 14:50 - CONCLUSION: Nail and ariana fixation of the left intertrochanteric fracture. Anatomic alignment. No acute complication demonstrated. Haris Rebolledo MD Thoracic Spine CT 11/27/161906 Signed Impressions: Service Date/Time: Sunday, November 27, 2016 20:06 - CONCLUSION: 1. Acute compression fracture of T11 with 2 mm of retropulsion and 50%% loss of height. 2. Old T9 compression fracture. 3. Scoliotic curvature and osteopenia. 4. Large hiatal hernia. Quintin Galdamez Jr., MD Lumbar Spine CT 11/27/161906 Signed Impressions: Service Date/Time: Sunday, November 27, 2016 20:06 - CONCLUSION: 1. No acute fracture or subluxation of the lumbar spine. 2. There is a subacute or older mild compression fracture of L2. No associated foraminal or spinal stenosis. 3. Mid and lower lumbar predominant degenerative changes as above. 4. Nonacute and substantially healed i fractures of the sacrum. I don't see an acute fracture of the visualized sacrum. Haris Rebolledo MD Head CT 11/27/161906 Signed Impressions: Service Date/Time: Sunday, November 27, 2016 20:00 - CONCLUSION: Motion degraded study. No bleed or other acute intracranial abnormality demonstrated. 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 Haris Rebolledo MD Cervical Spine CT 11/27/161906 Signed Impressions: Service Date/Time: Sunday, November 27, 2016 20:00 - CONCLUSION: No fracture or acute appearing malalignment demonstrated of the cervical spine. Haris Rebolledo MD Pelvis CT 11/27/16 0000 Signed Impressions: Service Date/Time: Sunday, November 27, 2016 20:06 - CONCLUSION: 1. No comminuted intertrochanteric fracture on the left. 2. Prior right intertrochanteric hip fracture with orthopedic hardware. 3. 5 cm hematoma involving the posterior left hip. Quintin Galdmaez Jr., MD . Procedures * Intramedullary ariana fixation of left hip fracture 11/28/16 . Assessment and Plan Disease Oriented Problem List: (1) Hip fracture, intertrochanteric (2) Postoperative anemia due to acute blood loss (3) Cerebrovascular disease (4) Vascular dementia (5) History of TIAs (6) Osteoporosis (7) Thoracic compression fracture (8) Recurrent falls Symptom Scale: (1) Pain 0-10 Scale: Unable to quantify Comment: Patient is unable to localize , quantify, or qualify pain due to dementia. sources of pain would include post-op pain from her new hip repair. She also has a number of compression fractures which might be painful. . (2) Confusion 0-10 Scale: Unable to quantify Comment: Patient has a 10 year history of progressive vascular dementia. she has essentially no short term memory. She also is likely experiencing some delirium from a combination of factors including medication and a foreign environment. . Pertinent Non-Medical Issues Psychosocial: Pending Spiritual:Pending Legal: Living will and Power of deputy commonwealth's attorney forms on chart. Son-- Booker Nielsen - - is the health care surrogate and medical/financial POA. Ethical issues impacting care: Patient is incapacitated and will not be regaining capacity. . Important Contacts * Booker Nielsen (son) [phone] * Paola Nielsen [phone] . Prognosis The patient's vascular dementia will continue to be progressive. The patient will not be able to benefit much from PT per her last experience. If/when she does get out of bed, she will be a very big fall risk. If she does not get out of bed, she will be at increased risk of pneumonia, skin breakdown, etc. Her vascular dementia is, in essence, an end stage condition. There is no treatment and it will get progressively worse. Her living will specifically says she would not want life prolonging measures if she should have an end stage condition. Depending on her surrogate's interpretation of her goals/ preferences, this could also mean she would not want antibiotics, blood transfusions, etc. Will need to speak with surrogate to best understand goals/preferences. . Code Status: No Code Plan == Code Status : NO CODE == Decision Making: The patient's son -- Booker Nielsen -- is both health care surrogate and power or deputy commonwealth's attorney. Patient is incapacitated and will not regain capacity. == Goals of medical treatment: Living will states no life prolonging measures if she should be found to have and end stage condition. Her vascular dementia is essentially an end stage condition. Health care surrogate was interested in knowing options. He feels the following would best honor the patient's goals/ preferences. * She will not do well in rehab based on their recent experience. She is unable to cooperate with physical therapy. * Therefore, he feels it is best to skip SNF and return to her long-term "home" at the locked unit of [facility]. It will probably be best to do this quickly as some of her agitation is due to being in an unfamiliar place. * He wants to see if agitation is better controlled there back in her familiar environment and on her usual medication regimen. * He understands that almost any attempts by the patient to get out of bed unassisted will result in a fall due to her deconditioning. Patient might need sitters or some increased sedation. If she is suffering from inability to get up and move around , he may consider increased sedating meds * Booker is aware that patient has an "end stage condition" and he can choose NOT to treat further fractures, infections, etc. if he feels that would best honor his mother's living will. * We discussed how hospice is available at any time to assist with comfort care at [facility] if/when they decide on that option. == Pain: Patient has understandable post operative pain. She may also be experiencing pain from her compression fractures. Current orders appear to be adequate. Pain management will be challenging as patient's dementia makes it difficult for her to localize/quantify/qualify pain. Will need to rely on non- verbal cues. Current orders appear adequate. No further recommendations at this time. == Confusion: Confusion is probably due to a combination of her underlying vascular dementia and a multi-factorial delirium. Her confusion is likely to make succesful PT and rehab virtually impossible. She will also remain a great fall risk and per nursing staff she is already pulling dressings off and making care challenging. It will be difficult to manage agitated confusion without sedating her and sedation will interfere with the limited rehab potential she has. == Falls: She remains at risk for falls because of her confusion and weakness. Falls place her at risk for use of anti-coagulation. On the other hand she has a history of TIAs and recent hip fractures so there are certainly risks of NOT anti-coagulating. I would certainly agree with a decision to forego anti-coagulation under the circumstances. Family should be aware of the risks in both directions. == Palliative care contact information provided. == Palliative care will continue to follow to assist with symptom management and to further clarify goals of medical treatment as the clinical course evolves. . Time Spent Total Floor Time (mins): 65 (total time included chart review, patient exam, and above referenced conference with the health care surrogate regarding goals of treatment. ) Face to Face Time (mins): 10 >50% Counseling/Coord of Care: Yes Attestation To help prompt me to consider important information that might be impacting today's encounter and assessment, information from prior notes written by myself or my colleagues may have been "brought forward" into today's note. My signature on this note, however, is an attestation that I personally performed the exam, history, and/or decision-making noted today, and, unless otherwise indicated, the interactions with patient, family, and staff as well as the review of records all occurred today. I also attest that the listed assessment and stated plan reflect my best clinical judgment today based on the combination of historical information, prior notes, and today's exam/ interactions. When time spent is documented, it refers only to time spent today by the signer, or if indicated, combined time spent today by collaborating physician/nurse practitioner. . Vikash Garcia MD Nov 30, 2016 10:26
[2016-11-30 11:54] LABS: HEMATOCRIT 25.4 % (35.0-46.0); REVIEW FLAG FINAL
[2016-11-30] MEDS: clonazePAM 1 MG TAB PO SCH (20:08)
[2016-11-30] MEDS ORDERED: DOCUSATE SODIUM 50 MG/SENNA 8.6 MG TAB PO ONE (20:45)
--- NOTE | 2016-11-30 20:47 | HHI.PR ---
Subjective Remarks patient seen this afternoon around 2 PM. Sleeping, wakes up for exam. She does report left hip pain. appears in less pain today.She makes better eye contact today. Smiles a little. Objective Vital Signs Date Time Temp Pulse Resp B/P Pulse Ox O2 Delivery O2 Flow Rate FiO2 11/30/16 18:22 Nasal Cannula 2.00 11/30/16 16:20 97.7 60 16 103/52 93 11/30/16 12:15 97.0 61 18 109/62 98 11/30/16 08:10 96.6 70 16 168/72 96 11/30/16 04:21 97.9 72 16 172/69 93 11/30/16 03:35 97.9 79 20 172/69 93 11/30/16 03:20 99.0 79 20 156/65 93 11/30/16 00:36 98.9 66 16 118/56 98 11/29/16 23:01 99.1 68 19 107/64 93 I/O 11/29/16 11/29/16 11/29/16 11/30/16 11/30/16 11/30/16 07:00 15:00 23:00 07:00 15:00 23:00 Intake Total 953 ml 720 ml 480 ml 380 ml 440 ml Output Total 350 ml 650 ml 875 ml 1775 ml 350 ml Balance 603 ml 70 ml -395 ml -1395 ml 90 ml Intake Oral 240 ml 720 ml 480 ml 380 ml 440 ml IV Total 713 ml Output Urine Total 350 ml 650 ml 875 ml 1775 ml 350 ml # Bowel Movements 0 0 0 0 Result Diagram: 11/30/16 1114 11/29/16 1200 Objective Remarks GENERAL: Patient lying in bed. Restrained, struggling.. Awake. Appears in pain. Disoriented as before, however alertness has improved somewhat. SKIN: Warm and dry. HEAD: Normocephalic. EYES: No scleral icterus. No injection or drainage. NECK: Supple, trachea midline. No JVD. CARDIOVASCULAR: Regular rate and rhythm without murmurs, gallops, or rubs. RESPIRATORY: Breath sounds equal bilaterally. No accessory muscle use. GASTROINTESTINAL: Abdomen soft, non-tender, nondistended. MUSCULOSKELETAL: No cyanosis, or edema. Peripheral perfusion appears intact. Left postoperative hip not examined. Patient moving bilateral lower and upper extremities. BACK: Nontender without obvious deformity. No CVA tenderness. A/P Assessment and Plan //Postop left hip ORIF 11/28/16 secondary to fracture -Postoperative management as per surgical service -Pain management as per surgical service. -Await return of bowel function. //Recurrent Falls: sent to ER from SNF secondary to fall at facility, details still unclear. CT Head, CT C-Spine w/ no acute fracture. -Patient with recent right hip fracture month ago. -Appreciate physical therapy assistance. -Family is apprehensive about continued aggressive rehabilitation and are interested in discussing further options with palliative care will consult. - Discussion 11/30 between palliative care and family pending. Appreciate palliative care assistance. //CT T-Spine w/ acute T-11 compression fracture. //CT L-Spine w/ subacute L1 fx -Patient not complaining of any pain. Sensation and lower extremity strength appears to be intact. - Pain and -Physical therapy assistance appreciated. // Dementia: Severe Dementia. //Agitation postop 11/28. -Continue home Geodon at 9 AM and with dinner. -Continue Klonopin. Ativan prn. -Continued reorientation. Restraints as needed. //Postoperative anemia Hemoglobin 6.9 postoperatively. - Resolved after 2 units blood transfusion 11/29 - No signs of bleeding currently. Monitor. //DVT Prophylaxis: SCD/Teds. Anticoagulation as per surgical service Discharge Planning palliative care following. Per discussion with palliative care on 11/30, discharge may be difficult. - Pending palliative care discussion with family. Darrell Parisi MD Nov 30, 2016 20:47
[2016-12-01] VITALS (8 sets, daily range): BP systolic 102–159; BP diastolic 56–72; PULSE 56–66; RESP 16–18; TEMP 95.3–98.1; O2SAT 95–99
[2016-12-01] MEDS: LACTATED RINGER'S 1000 ML IV SCH (03:15)
[2016-12-01] MEDS: ACETAMINOPHEN/HYDROcodone 325 MG/5 MG TAB PO PRN ×2 (03:22→09:37)
[2016-12-01] MEDS: SODIUM CHLOR 0.9% 1000 ML INJ 1,000 ML IV SCH ×2 (05:30→15:30)
--- NOTE | 2016-12-01 06:54 | PD.ORT.PN ---
Subjective Subjective Remarks No new complaints. Resting comfortably Objective Vitals Vital Signs Date Time Temp Pulse Resp B/P Pulse Ox O2 Delivery O2 Flow Rate FiO2 12/01/16 04:15 96.9 64 16 151/69 97 12/01/16 00:45 95.3 56 16 122/64 98 11/30/16 20:18 96.4 53 15 108/56 99 11/30/16 18:22 Nasal Cannula 2.00 11/30/16 16:20 97.7 60 16 103/52 93 11/30/16 12:15 97.0 61 18 109/62 98 11/30/16 08:10 96.6 70 16 168/72 96 I/O 11/30/16 11/30/16 11/30/16 12/01/16 12/01/16 12/01/16 07:00 15:00 23:00 07:00 15:00 23:00 Intake Total 380 ml 440 ml 240 ml Output Total 1775 ml 350 ml 1450 ml Balance -1395 ml 90 ml -1210 ml Intake Oral 380 ml 440 ml 240 ml Output Urine Total 1775 ml 350 ml 1450 ml # Bowel Movements 0 0 Result Diagram: 11/30/16 1114 11/29/16 1200 Other Results Laboratory Tests Test 11/30/16 06:36 Prothrombin Time 11.0 SEC (9.8-11.6) Prothromb Time International 1.0 RATIO Ratio Imaging Last 24 hours Impressions Thoracic Spine CT 11/27/161906 Signed Impressions: Service Date/Time: Sunday, November 27, 2016 20:06 - CONCLUSION: 1. Acute compression fracture of T11 with 2 mm of retropulsion and 50%% loss of height. 2. Old T9 compression fracture. 3. Scoliotic curvature and osteopenia. 4. Large hiatal hernia. Quintin Galdamez Jr., MD Lumbar Spine CT 11/27/161906 Signed Impressions: Service Date/Time: Sunday, November 27, 2016 20:06 - CONCLUSION: 1. No acute fracture or subluxation of the lumbar spine. 2. There is a subacute or older mild compression fracture of L2. No associated foraminal or spinal stenosis. 3. Mid and lower lumbar predominant degenerative changes as above. 4. Nonacute and substantially healed i fractures of the sacrum. I don't see an acute fracture of the visualized sacrum. Haris Rebolledo MD Head CT 11/27/161906 Signed Impressions: Service Date/Time: Sunday, November 27, 2016 20:00 - CONCLUSION: Motion degraded study. No bleed or other acute intracranial abnormality demonstrated. 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 Haris Rebolledo MD Cervical Spine CT 11/27/161906 Signed Impressions: Service Date/Time: Sunday, November 27, 2016 20:00 - CONCLUSION: No fracture or acute appearing malalignment demonstrated of the cervical spine. Haris Rebolledo MD Objective Remarks Left lower extremity: Clean dry dressings intact. Mild swelling. Intact sensation distally with good capillary refills. Strong dorsiflexion plantar flexion of foot Right lower extremity: Clean dressings and intact. Intact sensation distally with capillary refills mild tenderness to palpation of thoracic spine Assessment & Plan Assessment and Plan Left intertrochanteric femur fracture s/p IMN - POD 2 T11 compression fracture -WBAT -daily dressing changes -CM for rehab placement -f/u with Javier or ALBERTO in 2 weeks BRAYDON MORSE PA-C Dec 01, 2016 06:54
[2016-12-01] MEDS ORDERED: LACTULOSE SYRUP 20 GM/30 ML CUP PO PRN (08:30)
[2016-12-01] MEDS: CALCIUM/VITAMIN D 250 MG/125 U TAB PO SCH ×3 (09:00→16:44)
[2016-12-01] MEDS: PARoxetine HCL 37.5 MG CONTROLLED RELEASE TAB PO SCH (09:00)
[2016-12-01] MEDS: CHOLECALCIFEROL (VIT D3) 5000 UNIT CAP PO SCH (09:00)
[2016-12-01] MEDS: LABETALOL HCL 100 MG TAB PO SCH ×3 (09:23→18:00)
[2016-12-01] MEDS: ZIPRASIDONE HCL 40 MG CAP PO SCH ×2 (09:23→16:44)
[2016-12-01] MEDS: ISOSORBIDE MONONITRATE 60 MG TAB PO SCH (09:23)
[2016-12-01] MEDS: SODIUM CHLORIDE 0.9% FLUSH 5 ML FLUSH IVF SCH ×2 (09:24→23:31)
[2016-12-01] MEDS: FUROSEMIDE 20 MG TAB PO SCH (09:24)
[2016-12-01] MEDS: FERROUS SULFATE 325 MG (65 MG ELEMENTAL IRON) TAB PO SCH (09:24)
--- NOTE | 2016-12-01 12:30 | HHI.PR ---
Subjective Remarks Discuss with RN. Patient was awake earlier and had some of her breakfast. Currently more sleepy. Does not follow command. Objective Vitals Vital Signs Date Time Temp Pulse Resp B/P Pulse Ox O2 Delivery O2 Flow Rate FiO2 12/01/16 07:49 97.7 65 18 159/72 99 12/01/16 04:15 96.9 64 16 151/69 97 12/01/16 00:45 95.3 56 16 122/64 98 11/30/16 20:18 96.4 53 15 108/56 99 11/30/16 18:22 Nasal Cannula 2.00 11/30/16 16:20 97.7 60 16 103/52 93 I/O 11/30/16 11/30/16 11/30/16 12/01/16 12/01/16 12/01/16 06:59 14:59 22:59 06:59 14:59 22:59 Intake Total 380 ml 440 ml 240 ml 360 ml Output Total 1775 ml 350 ml 1450 ml 875 ml Balance -1395 ml 90 ml -1210 ml -515 ml Intake Oral 380 ml 440 ml 240 ml 360 ml Output Urine Total 1775 ml 350 ml 1450 ml 875 ml # Bowel Movements 0 0 0 Result Diagram: 11/30/16 1114 11/29/16 1200 Imaging Last Impressions Hip X-Ray 11/28/16 0000 Signed Impressions: Service Date/Time: Monday, November 28, 2016 14:50 - CONCLUSION: Nail and ariana fixation of the left intertrochanteric fracture. Anatomic alignment. No acute complication demonstrated. Haris Rebolledo MD Thoracic Spine CT 11/27/161906 Signed Impressions: Service Date/Time: Sunday, November 27, 2016 20:06 - CONCLUSION: 1. Acute compression fracture of T11 with 2 mm of retropulsion and 50%% loss of height. 2. Old T9 compression fracture. 3. Scoliotic curvature and osteopenia. 4. Large hiatal hernia. Quintin Galdamez Jr., MD Lumbar Spine CT 11/27/161906 Signed Impressions: Service Date/Time: Sunday, November 27, 2016 20:06 - CONCLUSION: 1. No acute fracture or subluxation of the lumbar spine. 2. There is a subacute or older mild compression fracture of L2. No associated foraminal or spinal stenosis. 3. Mid and lower lumbar predominant degenerative changes as above. 4. Nonacute and substantially healed i fractures of the sacrum. I don't see an acute fracture of the visualized sacrum. Haris Rebolledo MD Head CT 11/27/161906 Signed Impressions: Service Date/Time: Sunday, November 27, 2016 20:00 - CONCLUSION: Motion degraded study. No bleed or other acute intracranial abnormality demonstrated. 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 Haris Rebolledo MD Cervical Spine CT 11/27/161906 Signed Impressions: Service Date/Time: Sunday, November 27, 2016 20:00 - CONCLUSION: No fracture or acute appearing malalignment demonstrated of the cervical spine. Haris Rebolledo MD Pelvis CT 11/27/16 0000 Signed Impressions: Service Date/Time: Sunday, November 27, 2016 20:06 - CONCLUSION: 1. No comminuted intertrochanteric fracture on the left. 2. Prior right intertrochanteric hip fracture with orthopedic hardware. 3. 5 cm hematoma involving the posterior left hip. Quintin Galdamez Jr., MD Objective Remarks GENERAL: Elderly female. In no acute distress. CARDIOVASCULAR: Normal rate and regular rhythm without murmurs, gallops, or rubs. RESPIRATORY: Good respiratory efforts. Breath sounds equal and clear to auscultation bilaterally. GASTROINTESTINAL: Abdomen soft, non-tender, non-distended. Normal active bowel sounds MUSCULOSKELETAL: Extremities without cyanosis, or edema. Left hip postop dressing clean and dry. NEURO: Briefly open her eyes when asked but did not follow any more commands. PSYCH: Calm A/P Problem List: (1) Recurrent falls ICD Code: R29.6 Status: Acute (2) Hip fracture, intertrochanteric ICD Code: S72.143A Status: Acute (3) Thoracic compression fracture ICD Code: S22.000A Status: Acute (4) Dementia ICD Code: F03.90 Status: Chronic Assessment and Plan 81 Y/O female with: Postop left hip ORIF 11/28/16 secondary to fracture -Postoperative management as per surgical service -Pain management as per surgical service. -Await return of bowel function. Lactulose added today. Recurrent Falls: sent to ER from SNF secondary to fall at facility, details still unclear. CT Head, CT C-Spine w/ no acute fracture. -Patient with recent right hip fracture month ago. -Appreciate physical therapy assistance. - Per family discussion with palliative care. All agreed that patient cannot participate with PT at rehab given her advanced dementia. Family requested DC back to [facility] care unit. Case management discussed with the family and they requested hospice consult. CT T-Spine w/ acute T-[address] L-Spine w/ subacute L1 fx -Patient not complaining of any pain. Sensation and lower extremity strength appears to be intact. - Pain and -Physical therapy assistance appreciated. Dementia: Severe Dementia. Agitation postop 11/28. -Continue home Geodon at 9 AM and with dinner. -Continue Klonopin. Ativan prn. -Continued reorientation. Restraints as needed. Postoperative anemia Hemoglobin 6.9 postoperatively. - Resolved after 2 units blood transfusion 11/29 - No signs of bleeding currently. Monitor. Constipation post op: - Lactulose today. DVT Prophylaxis: SCD/Teds. Anticoagulation as per surgical service Discharge Planning Hospice consulted today. Family plan to have the patient return to the long- term care facility probably with hospice. Appreciate palliative care following Problem Qualifiers (1) Hip fracture, intertrochanteric: Qualified Code: S72.145A - Closed nondisplaced intertrochanteric fracture of left femur, initial encounter (2) Dementia: Qualified Code: F03.90 - Dementia without behavioral disturbance, unspecified dementia type Galindo Ellis MD Dec 01, 2016 12:30
[2016-12-01] MEDS: clonazePAM 1 MG TAB PO SCH (23:31)
[2016-12-02] VITALS: BP 145/69; PULSE 66; RESP 18; TEMP 98.1; O2SAT 96
[2016-12-02] MEDS: SODIUM CHLOR 0.9% 1000 ML INJ 1,000 ML IV SCH ×2 (01:30→11:30)
[2016-12-02] MEDS: LACTATED RINGER'S 1000 ML IV SCH (03:15)
[2016-12-02] MEDS: ACETAMINOPHEN/HYDROcodone 325 MG/5 MG TAB PO PRN (04:22)
--- NOTE | 2016-12-02 06:44 | PD.ORT.PN ---
Subjective Subjective Remarks POD 4 s/p left IT IMN s/p Tspine compression fx doing well. pain controlled. confused Objective Vitals Vital Signs Date Time Temp Pulse Resp B/P Pulse Ox O2 Delivery O2 Flow Rate FiO2 12/02/16 00:00 98.1 66 18 145/69 96 12/01/16 20:27 97 Nasal Cannula 1.00 12/01/16 20:00 98.1 66 18 145/69 96 12/01/16 16:10 96.9 61 16 131/61 95 12/01/16 13:39 97 Nasal Cannula 1.00 12/01/16 11:50 95.5 56 16 102/56 96 12/01/16 07:49 97.7 65 18 159/72 99 I/O 12/01/16 12/01/16 12/01/16 12/02/16 12/02/16 12/02/16 07:00 15:00 23:00 07:00 15:00 23:00 Intake Total 360 ml 600 ml 1080 ml Output Total 875 ml 750 ml 2550 ml Balance -515 ml -150 ml -1470 ml Intake Oral 360 ml 600 ml 1080 ml Output Urine Total 875 ml 750 ml 2550 ml # Voids 0 # Bowel Movements 0 0 0 Result Diagram: 11/30/16 1114 11/29/16 1200 Imaging Last 24 hours Impressions Thoracic Spine CT 11/27/161906 Signed Impressions: Service Date/Time: Sunday, November 27, 2016 20:06 - CONCLUSION: 1. Acute compression fracture of T11 with 2 mm of retropulsion and 50%% loss of height. 2. Old T9 compression fracture. 3. Scoliotic curvature and osteopenia. 4. Large hiatal hernia. Quintin Galdamez Jr., MD Lumbar Spine CT 11/27/161906 Signed Impressions: Service Date/Time: Sunday, November 27, 2016 20:06 - CONCLUSION: 1. No acute fracture or subluxation of the lumbar spine. 2. There is a subacute or older mild compression fracture of L2. No associated foraminal or spinal stenosis. 3. Mid and lower lumbar predominant degenerative changes as above. 4. Nonacute and substantially healed i fractures of the sacrum. I don't see an acute fracture of the visualized sacrum. Haris Rebolledo MD Head CT 11/27/161906 Signed Impressions: Service Date/Time: Sunday, November 27, 2016 20:00 - CONCLUSION: Motion degraded study. No bleed or other acute intracranial abnormality demonstrated. 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 Haris Rebolledo MD Cervical Spine CT 11/27/161906 Signed Impressions: Service Date/Time: Sunday, November 27, 2016 20:00 - CONCLUSION: No fracture or acute appearing malalignment demonstrated of the cervical spine. Haris Rebolledo MD Objective Remarks Left lower extremity: Clean dry dressings intact. Mild swelling. Intact sensation distally with good capillary refills. Strong dorsiflexion plantar flexion of foot mild tenderness to palpation of thoracic spine Assessment & Plan Assessment and Plan Left intertrochanteric femur fracture s/p IMN - POD 4 T11 compression fracture -WBAT -daily dressing changes -CM for rehab placement -f/u with Javier or ALBERTO in 2 weeks Pedro Teague Dec 02, 2016 06:44
[2016-12-02 08:00] VITALS: PULSE 74; RESP 16; TEMP 97.4; O2SAT 98
[2016-12-02] MEDS: SODIUM CHLORIDE 0.9% FLUSH 5 ML FLUSH IVF SCH (08:03)
[2016-12-02] MEDS: ISOSORBIDE MONONITRATE 60 MG TAB PO SCH (08:05)
[2016-12-02] MEDS: CALCIUM/VITAMIN D 250 MG/125 U TAB PO SCH ×3 (08:05→17:01)
[2016-12-02] MEDS: LABETALOL HCL 100 MG TAB PO SCH ×3 (08:05→17:02)
[2016-12-02] MEDS: PARoxetine HCL 37.5 MG CONTROLLED RELEASE TAB PO SCH (08:05)
[2016-12-02] MEDS: FERROUS SULFATE 325 MG (65 MG ELEMENTAL IRON) TAB PO SCH (08:05)
[2016-12-02] MEDS: CHOLECALCIFEROL (VIT D3) 5000 UNIT CAP PO SCH (08:05)
[2016-12-02] MEDS: FUROSEMIDE 20 MG TAB PO SCH (08:05)
[2016-12-02] MEDS: ZIPRASIDONE HCL 40 MG CAP PO SCH ×2 (08:05→17:01)
[2016-12-02 10:13] VITALS: O2SAT 97
[2016-12-02 12:22] VITALS: BP 104/50; PULSE 59; RESP 18; TEMP 97.4; O2SAT 97
--- NOTE | 2016-12-02 14:07 | HHI.DS ---
Discharge Summary Admission Date Nov 27, 2016 at 22:00 Discharge Date: Dec 02, 2016 Admitting Diagnosis (1) Recurrent falls ICD Code: R29.6 (2) Hip fracture, intertrochanteric ICD Code: S72.143A (3) Thoracic compression fracture ICD Code: S22.000A (4) Dementia ICD Code: F03.90 Procedures left hip ORIF 11/28/16 Brief History - From Admission This is an 81-year-old female with a PMH of Dementia, Anxiety, Depression and Recurrent Falls who was transferred to the ER from SNF after another fall. Pt unable to provide much history except for complains of left hip pain. Recent admit 11/16-11/21/16 for same, found to have Right Intertrochanteric Hip Fx /sp ORIF 11/17/16. On arrival, BP 146/71, HR 71, O2 sat 91% on RA, Afebrile. CBC at baseline. Chemistry at baseline. Creatinine 1.39, previously 1.[address] Head, CT C-Spine w/ no acute finding. CT L-Spine w/ subacute L2 compression fracture, no acute findings. CT T-Spine w/ acute compression fracture T11. CT Pelvis w/ acute fracture of left intertrochanteric hip and posterior hip hematoma. CBC/BMP: 11/30/16 1114 11/29/16 1200 Significant Findings Laboratory Tests Test 11/30/16 11:14 Hemoglobin 8.8 GM/DL (11.6-15.3) Hematocrit 25.4 % (35.0-46.0) Imaging Last Impressions Hip X-Ray 11/28/16 0000 Signed Impressions: Service Date/Time: Monday, November 28, 2016 14:50 - CONCLUSION: Nail and ariana fixation of the left intertrochanteric fracture. Anatomic alignment. No acute complication demonstrated. Haris Rebolledo MD Thoracic Spine CT 11/27/16 1907 Signed Impressions: Service Date/Time: Sunday, November 27, 2016 20:06 - CONCLUSION: 1. Acute compression fracture of T11 with 2 mm of retropulsion and 50%% loss of height. 2. Old T9 compression fracture. 3. Scoliotic curvature and osteopenia. 4. Large hiatal hernia. Quintin Galdamez Jr., MD Lumbar Spine CT 11/27/161906 Signed Impressions: Service Date/Time: Sunday, November 27, 2016 20:06 - CONCLUSION: 1. No acute fracture or subluxation of the lumbar spine. 2. There is a subacute or older mild compression fracture of L2. No associated foraminal or spinal stenosis. 3. Mid and lower lumbar predominant degenerative changes as above. 4. Nonacute and substantially healed i fractures of the sacrum. I don't see an acute fracture of the visualized sacrum. Haris Rebolledo MD Head CT 11/27/161906 Signed Impressions: Service Date/Time: Sunday, November 27, 2016 20:00 - CONCLUSION: Motion degraded study. No bleed or other acute intracranial abnormality demonstrated. 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 Haris Rebolledo MD Cervical Spine CT 11/27/161906 Signed Impressions: Service Date/Time: Sunday, November 27, 2016 20:00 - CONCLUSION: No fracture or acute appearing malalignment demonstrated of the cervical spine. Haris Rebolledo MD Pelvis CT 11/27/16 0000 Signed Impressions: Service Date/Time: Sunday, November 27, 2016 20:06 - CONCLUSION: 1. No comminuted intertrochanteric fracture on the left. 2. Prior right intertrochanteric hip fracture with orthopedic hardware. 3. 5 cm hematoma involving the posterior left hip. Quintin Galdamez Jr., MD PE at Discharge GENERAL: Elderly female. In no acute distress. CARDIOVASCULAR: Normal rate and regular rhythm without murmurs, gallops, or rubs. RESPIRATORY: Good respiratory efforts. Breath sounds equal and clear to auscultation bilaterally. GASTROINTESTINAL: Abdomen soft, non-tender, non-distended. Normal active bowel sounds MUSCULOSKELETAL: Extremities without cyanosis, or edema. Left hip postop dressing clean and dry. NEURO: Briefly open her eyes when asked but did not follow any more commands. PSYCH: Calm Pt update on day of discharge Patient is more awake today. Pleasantly demented. No complaints. Hospital Course 81 Y/O female with dementia admitted recurrent falls and second hip fracture. Patient had a fall and fractured her right hip a month ago. She has had difficulty with rehabilitation due to her advanced dementia. She sustained another fall fracturing the left hip. She underwent ORIF on 11/28/16. Per family discussion with palliative care. All agreed that patient cannot participate with PT at rehab given her advanced dementia. Family [facility] with hospice support. Hospital course and other conditions treated detailed below: CT T-Spine w/ acute T-[address] L-Spine w/ subacute L1 fx -Patient not complaining of any pain. Sensation and lower extremity strength appears to be intact. - Pain medication as needed. Dementia: Severe Dementia. Agitation postop 11/28. -Continue home Geodon at 9 AM and with dinner. - Ativan prn. -Continued reorientation. Postoperative anemia Hemoglobin 6.9 postoperatively. - Resolved after 2 units blood transfusion 11/29 - No further signs of bleeding. Constipation post op: -Patient was given lactulose. She is to continue with the stool softener as needed. Pt Condition on Discharge: Stable Discharge Disposition: ACLF/LISA Discharge Time: > 30 minutes Discharge Instructions DIET: Follow Instructions for: Diabetic Diet Activities you can perform: See Additionl Instruction Other Activity Instructions: Per orthopedics /PT instructions Follow up Referrals: Orthopedics - 12/13/16 @ [facility] with Simone Herrera MD New Medications: Hydrocodone-Acetaminophen (Virgin) 7.5-325 mg Tab 1 TAB PO Q4H PRN PAIN #60 Ref 0 TAB Rivaroxaban (Xarelto) 10 Mg Tab 10 MG PO DAILY Blood Clot Prevention #14 Ref 0 TAB Walker with Front Wheels (Walker with Front Wheels) 1 Mis Mis 1 EA .ROUTE DIRECTED #1 Ref 0 EA Continued Medications: Aspirin (Aspirin) 81 Mg Tabdr 81 MG PO DAILY TAB Cholecalciferol (Vitamin D3) 1,000 Unit Cap 1000 UNITS PO DAILY Nutritional Supplement #1 Ref 0 BOTTLE Cyanocobalamin ER (Vitamin B-12 Cr) 1,000 Mcg Tab 1000 MCG PO DAILY Nutritional Supplement #1 Ref 0 BOTTLE Ferrous Sulfate (Ferrous Sulfate) 325 Mg Tab 325 MG PO DAILY Nutritional Supplement #30 Ref 0 TAB Furosemide (Furosemide) 20 Mg Tab 20 MG PO DAILY #30 Ref 0 TAB Isosorbide Dinitrate (Isosorbide Dinitrate SA) 40 Mg Tab 60 MG PO DAILY Labetalol (Labetalol) 100 Mg Tab 100 MG PO TID Blood Pressure Management Ref 0 TAB Lactulose Liq (Lactulose Liq) 10 Gm/15 Ml Soln 30 ML PO HS PRN constipation Ref 0 ML Paroxetine (Paxil) 40 Mg Tab 37.5 MG PO DAILY take two tabs #30 Ref 0 TAB Potassium Chloride Liq (Potassium Chloride Liq) 20 Meq/15 Ml Soln 20 MEQ PO DAILY Electrolyte Replacement Ref 0 ML Ziprasidone (Geodon) 40 Mg Cap 40 MG PO BID #60 Ref 0 CAP Discontinued Medications: Clonazepam (Klonopin) 1 Mg Tab 1 MG PO HS anxiety #10 Ref 0 TAB Enoxaparin Inj (Lovenox Inj) 40 Mg/0.4 Ml Syr 40 MG SQ Q24H Prevent Blood Clot #30 INJECTION Hydrocodone-Acetaminophen (Virgin) 5-325 mg Tab 1 TAB PO Q4H PRN PAIN Ref 0 TAB Hydrocodone-Acetaminophen (Hydrocodone-Acetaminophen) 5-325 mg Tab 1 TAB PO Q4H PRN PAIN LESS THAN 5 ON SCALE #30 TAB Galindo Ellis MD Dec 02, 2016 14:07
--- NOTE | 2016-12-02 14:36 | HHI.HCPN ---
Reason for visit a. To assist with evaluation and management of symptoms including: post- operative pain; confusion b. To assist medical decision maker(s) with: better understanding of current medical conditions; weighing benefits/burdens of medical treatment options; making medical treatment decisions. . Subjective/Interval History Patient is awake, calm, but able to answer simple questions at time of my visit. She smiles. She denies pain/sob. She is confused, but pleasantly so. Nurse charting shows patient as being primarily "cooperative" and "calm." Son reports that she continues to get agitated in the evenings and then is calm during most of the day. Her last opiate analgesic dosing was [place] 5-325 at 0422 this AM. She had two doses in 24 hours. Case management notes indicate that discharge planning is underway to get patient back to [facility] and that [facility] hospice has been consulted. From the initial palliative care note of Dr. Garcia from 11/29/16... Ms. Nielsen is an 81-year-old female with a history of cerebrovascular disease; probable vascular dementia; TIAs; coronary artery disease; anxiety; depression; and hypertension who was brought to [facility] on 11/27 after suffering a fall in her nursing facility ([facility]) and complaining of left hip and lower back pain. The patient had just been hospitalized from 11/16/16 through 11/21/16 also after suffering a fall which caused a right intertrochanteric hip fracture for which she underwent open reduction and internal fixation on 11/17/16. In the emergency department and vital signs were as follows: Temperature 98.1; pulse 78; respiratory rate 15; blood pressure 146/71; pulse oximetry 91% on room air Physical examination performed by the emergency department physician noted the following: Patient was noncommunicative and in moderate distress. There was a skin tear on the left elbow and significant ecchymosis involving the right lower extremity. There was discomfort with movement of either lower extremity. Patient was mostly nonverbal attributed to her dementia. The remainder of the physical exam was unremarkable. Initial diagnostic testing revealed the following: * CBC showed WBC 6.7; hemoglobin 9.2; platelet count 275 * Coagulation profile showed PT 10.9; INR 1.0; PTT 26.1 * Metabolic profile showed sodium 136; potassium 5.1; chloride 101; CO2 27.2; anion gap 8; BUN 29; creatinine 1.39; GFR 36; glucose 92; calcium 8.3 * CT imaging of the left hip revealed a nondisplaced intertrochanteric fracture. * CT imaging also revealed an acute compression fracture of T11. [facility] Orthopedics was consulted. The patient was taken to surgery on 11/28/2016 and underwent left hip reduction and intramedullary nail fixation by Dr. Guzman. The patient was seen earlier today and appeared to be doing well. She was eating lunch. She remained confused and disoriented. She answered "yes" when asked about pain but was unable to qualify or quantify that pain. A review of the patient's medication administration record shows no need for opiate analgesics today. There was some bleeding on the dressing last night and hemoglobin level came in at 6.9 this morning. Family has agreed to blood transfusion. Family also inquired about palliative care. They reported that the patient did not [facility] well [facility] probably due to her severe dementia. . Family/friend interactions spoke with son on phone. He is pleased with the plan to return patient to [facility] under hospice care. He feels the decision he has made is the best for his mother given there were no really good options. He has my contact information and he knows he can contact me if he has questions in the future even after transfer to [facility]. . Advance Directives Living Will: Copy in medical record Health Care Surrogate: Copy in medical record Durable Power of Aircraft Body Repairer: Copy in medical record Advance Directive Specifics Date completed: 05/05/1997 Health Care Surrogate(s): Patient has designated her son (Booker Nielsen) as health care surrogate and health care power of family law attorney. Documented care wishes: Living will states that patient would not want life prolonging measures should she be found to have a terminal or end stage condition. . Objective Vital Signs Date Time Temp Pulse Resp B/P Pulse Ox O2 Delivery O2 Flow Rate FiO2 12/02/16 10:13 97 Nasal Cannula 2.00 12/02/16 08:00 97.4 74 16 98 12/02/16 00:00 98.1 66 18 145/69 96 12/01/16 20:27 97 Nasal Cannula 1.00 12/01/16 20:00 98.1 66 18 145/69 96 12/01/16 16:10 96.9 61 16 131/61 95 Intake & Output 12/02/16 12/02/16 07:00 19:00 Intake Total 1080 ml Output Total 2550 ml Balance -1470 ml Intake Oral 1080 ml Output Urine Total 2550 ml # Bowel Movements 0 . Physical Exam CONSTITUTIONAL/GENERAL: This is an adequately nourished patient. She is confused but can follow simple directions and speak in simple phrases. Smiles. TUBES/LINES/DRAINS: Peripheral IV. Soft wrist restraints. SCDs in place. SKIN: Pale. No jaundice, rashes, or lesions. Healed surgical wound on right hip. Healing surgical wound on left hip with ecchymosis. Left elbow skin tear. Not diaphoretic. EYES: Pupils equal and round. Extraocular motions intact. No scleral icterus. No injection or drainage. Fundi not examined. ENT: Hearing grossly normal. Nose without bleeding or purulent drainage. Throat without visible erythema, exudates, masses, or lesions. CARDIOVASCULAR: Regular rate and rhythm without gallop or rub. There is a 3/6 systolic murmur. No JVD. Peripheral pulses symmetric. RESPIRATORY/CHEST: Symmetric, unlabored respirations. Clear to auscultation. Breath sounds equal bilaterally. No wheezes, rales, or rhonchi. GASTROINTESTINAL: Abdomen soft, non-tender, nondistended. No hepato-splenomegaly , or palpable masses. No guarding. Bowel sounds present. GENITOURINARY: Without palpable bladder distension. Haile catheter in place. MUSCULOSKELETAL: Surgical wounds over hips as described above. Extremities otherwise without clubbing, cyanosis, or edema. LYMPHATICS: Not examined. NEUROLOGICAL: Awake but drowsy. Follows simple commands. Confused. PSYCHIATRIC: No obvious anxiety/depression. no apparent hallucinations or other psychotic thought process. . Diagnostic Tests Laboratory Laboratory Tests Test 11/30/16 11/30/16 06:36 11:14 Prothrombin Time 11.0 SEC (9.8-11.6) Prothromb Time International 1.0 RATIO Ratio Hemoglobin 8.8 GM/DL (11.6-15.3) Hematocrit 25.4 % (35.0-46.0) . Result Diagram: 11/30/16 1114 11/29/16 1200 Procedures * Intramedullary ariana fixation of left hip fracture 11/28/16 . Assessment and Plan Disease Oriented Problem List: (1) Hip fracture, intertrochanteric (2) Postoperative anemia due to acute blood loss (3) Cerebrovascular disease (4) Vascular dementia (5) History of TIAs (6) Osteoporosis (7) Thoracic compression fracture (8) Recurrent falls Symptom Scale: (1) Pain 0-10 Scale: Unable to quantify Comment: Patient is unable to localize , quantify, or qualify pain due to dementia. sources of pain would include post-op pain from her new hip repair. She also has a number of compression fractures which might be painful. . . (2) Confusion 0-10 Scale: Unable to quantify Comment: Patient has a 10 year history of progressive vascular dementia. she has essentially no short term memory. She also is likely experiencing some delirium from a combination of factors including medication and a foreign environment. . 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 Son, [id number] live locally (and are [facility] nurses) Spiritual:Muslim and spirituality are not an important part of the patient's life. Son and son's family are Jehovah's Witnesses. Legal: Living will and Power of family law attorney forms on chart. Son-- Booker Nielsen - - is the health care surrogate and medical/financial POA. Ethical issues impacting care: Patient is incapacitated and will not be regaining capacity. . Important Contacts * Booker Nielsen (son) [phone] * Paola Nielsen [phone] . Prognosis The patient's vascular dementia will continue to be progressive. The patient will not be able to benefit much from PT per her last experience. If/when she does get out of bed, she will be a very big fall risk. If she does not get out of bed, she will be at increased risk of pneumonia, skin breakdown, etc. Her vascular dementia is, in essence, an end stage condition. There is no treatment and it will get progressively worse. Her living will specifically says she would not want life prolonging measures if she should have an end stage condition. Depending on her surrogate's interpretation of her goals/ preferences, this could also mean she would not want antibiotics, blood transfusions, etc. Son's plan is to honor her wishes by returning her "home" to [facility] and having hospice in place. . . Code Status: No Code Plan == Code Status : NO CODE == Decision Making: The patient's son -- Booker Nielsen -- is both health care surrogate and power or family law attorney. Patient is incapacitated and will not regain capacity. == Goals of medical treatment: Living will states no life prolonging measures if she should be found to have and end stage condition. Her vascular dementia is essentially an end stage condition. After discussing limited options, son has decided to honor patient's wishes by foregoing further aggressive care, returning patient to her "home" at [facility], and enrolling her with hospice. == Pain: Patient has post operative pain that is now controlled with one to two doses of Norc 5 per day. She may also be experiencing pain from her compression fractures. Current orders appear to be adequate. Pain management will be challenging as patient's dementia makes it difficult for her to localize /quantify/qualify pain. Will need to rely on non-verbal cues. Current orders appear adequate. No further recommendations at this time. == Confusion: Confusion is probably due to a combination of her underlying vascular dementia and a multi-factorial delirium. Her confusion is likely to make successful PT and rehab virtually impossible. She will also remain a great fall risk and per nursing staff she is already pulling dressings off and making care challenging. It will be difficult to manage agitated confusion without sedating her and sedation will interfere with the limited rehab potential she has. == Falls: She remains at risk for falls because of her confusion and weakness. Falls place her at risk for use of anti-coagulation. On the other hand she has a history of TIAs and recent hip fractures so there are certainly risks of NOT anti-coagulating. I would certainly agree with a decision to forego anti-coagulation under the circumstances. Family should be aware of the risks in both directions. == Scheduled for discharge back to [facility] later this afternoon. [facility] has been consulted. == Spoke with son as noted above. . Attestation To help prompt me to consider important information that might be impacting today's encounter and assessment, information from prior notes written by myself or my colleagues may have been "brought forward" into today's note. My signature on this note, however, is an attestation that I personally performed the exam, history, and/or decision-making noted today, and, unless otherwise indicated, the interactions with patient, family, and staff as well as the review of records all occurred today. I also attest that the listed assessment and stated plan reflect my best clinical judgment today based on the combination of historical information, prior notes, and today's exam/ interactions. When time spent is documented, it refers only to time spent today by the signer, or if indicated, combined time spent today by collaborating physician/nurse practitioner. . Vikash Garcia MD Dec 02, 2016 14:35
[2016-12-02 16:00] VITALS: BP 154/62; PULSE 64; RESP 16; TEMP 97.3; O2SAT 97
== END 2016-12-02 19:39 | disposition hospice, home (50) | DRG 481 ==
LOC: NEPA 18:43 → NEDA 22:00 → N06B 23:11 → N06A 11-29 18:57
PROVIDERS: ADMIT Family Medicine; ATTEND Family Medicine
PROC: 0QS7XZZ Reposition Left Upper Femur, External Approach (ICD-10-PCS; 2016-11-28)
PROC: 0QH706Z Insertion of Intramedullary Internal Fixation Device into Left Upper Femur, Open Approach (ICD-10-PCS; principal; 2016-11-28 14:00)
PROC: 30233N1 Transfusion of Nonautologous Red Blood Cells into Peripheral Vein, Percutaneous Approach (ICD-10-PCS; 2016-11-29)
DX: S72.142A Displaced intertrochanteric fracture of left femur, initial encounter for closed fracture (principal); S22.089A Unspecified fracture of T11-T12 vertebra, initial encounter for closed fracture; S32.019A Unspecified fracture of first lumbar vertebra, initial encounter for closed fracture; Z78.1 Physical restraint status; S51.012A Laceration without foreign body of left elbow, initial encounter; D62 Acute posthemorrhagic anemia; F01.50 Vascular dementia, unspecified severity, without behavioral disturbance, psychotic disturbance, mood disturbance, and anxiety; W01.0XXA Fall on same level from slipping, tripping and stumbling without subsequent striking against object, initial encounter; Y92.129 Unspecified place in nursing home as the place of occurrence of the external cause; R29.6 Repeated falls; M81.0 Age-related osteoporosis without current pathological fracture; I10 Essential (primary) hypertension; K59.00 Constipation, unspecified; F32.9 Major depressive disorder, single episode, unspecified; F41.9 Anxiety disorder, unspecified; I25.10 Atherosclerotic heart disease of native coronary artery without angina pectoris; Z95.5 Presence of coronary angioplasty implant and graft; Z66 Do not resuscitate; Z79.82 Long term (current) use of aspirin; Z98.890 Other specified postprocedural states
CPT/HCPCS: 36430; 51702; 70450; 72125; 72128; 72131; 72192; 73502; 76000; 80048; 80053; 82306; 85014; 85018; 85025; 85610; 85730; 86850; 86900; 86901; 86920; 96374; 96375; 96376; C1713; J0690; J1940; J2270; J2370; J2405; J3370; J7030; L0200; L0484; P9016